=== PATIENT | female | born 1950 | race Caucasian/White ===

== ENCOUNTER → 2016-09-02 | Outpatient (CLI) | payer BC, OTHER | LOC: WI 11:37 | PROVIDERS: ATTEND Internal Medicine | DX: Z12.31 Encounter for screening mammogram for malignant neoplasm of breast (principal) | CPT/HCPCS: 77067; G0202 ==

== ENCOUNTER → 2016-09-04 | Outpatient (CLI) | payer BC, OTHER ==
--- NOTE | 2016-09-04 18:07 | XCELERA REPORT ---
[address] [address] Lower Extremity Arterial Evaluation Name: HUANG WATSON Age: 65 yrs Gender: Female : 1950 Patient Status: Outpatient Patient Location: Study Date: 09/04/2016 02:43 PM Procedure: A color flow and duplex scan of the lower extremity arteries was performed bilaterally with velocity and waveform anaylsis. Ankle brachial indicies performed. Reason For Study: PVD Ordering Physician: SCOUT LAI Performed By: Michaelle Rose Measurements and Calculations Right Left PHYS THERAPIST PSV 113.1 95.5 cm/sec Prox PFA PSV -89.4 -64.3 cm/sec Prox SFA PSV 96.3 93.8 cm/sec Mid SFA PSV -111.4 -95.8 cm/sec Dist SFA PSV -129.9 -102.6 cm/sec Prox Pop A PSV -63.5 -50.0 cm/sec Dist HANNAH PSV 75.8 82.9 cm/sec Dist TUNNELLER PSV 60.7 84.3 cm/sec Russell Pedis PSV 57.8 55.4 cm/sec Right Side Arterial Evaluation Normal velocity and triphasic waveforms noted from the Common Femoral artery to the Anterior Tibial artery. Biphasic in the Posterior Tibial Dorsalis Pedis arteries . 0-19% stenosis at the Posterior tibial and Dorsalis Pedis arteries. Ankle Brachial index is 1.13. Left Side Arterial Evaluation Normal velocity and triphasic waveforms noted from the Common Femoral artery to the Posterior Tibial artery. Biphasic in the Anterior Tibial artery . 0-19% stenosis at the Anterior Tibial tibial artery . Ankle Brachial index is 0.94. Interpretation Summary Mild hemodynamically significant lesions in the bilateral lower extremities, on duplex imaging, at rest. : SCOUT LAI > Ian Pennington
== END ==
LOC: SP 14:08
PROVIDERS: ATTEND Nurse Practitioner Acute Care
DX: I73.9 Peripheral vascular disease, unspecified (principal)
CPT/HCPCS: 93925

== ENCOUNTER 2018-07-07 18:18 | Inpatient (IN) | payer MEDICARE, BC, OTHER ==
[2018-07-07 18:36] LABS: ABSOLUTE BASOPHILS # (AUTO) 0.1 10^3/uL (0.0-0.2); ABSOLUTE EOSINOPHILS # (AUTO) 0.1 10^3/uL (0.0-0.6); ABSOLUTE LYMPHOCYTES (AUTO) 1.2 10^3/uL (0.5-4.7); ABSOLUTE MONOCYTES (AUTO) 0.4 10^3/uL (0.1-1.4); ABSOLUTE NEUT (AUTO) 3.4 10^3/uL (1.7-8.2); EOSINOPHILS % (AUTO) 2.5 % (0-6); HEMATOCRIT 29.6 % (36.0-47.0); HEMOGLOBIN 10.1 g/dL (12.0-15.5); LYMPHOCYTES % (AUTO) 23.3 % (13-45); MEAN CORPUSCULAR HEMOGLOBIN 33.8 pg (27.0-33.4); MEAN CORPUSCULAR VOLUME 99 fl (80-97); MONOCYTES % (AUTO) 7.7 % (3-13); PLATELET COUNT 192 10^3/uL (150-450); RED BLOOD COUNT 2.98 10^6/uL (3.72-5.28); RED CELL DISTRIBUTION WIDTH 13.9 % (11.5-14.0); SEGMENTED NEUTROPHILS % (AUTO) 65.5 % (42-78); TOTAL CELLS COUNTED % (AUTO) 100 %; WHITE BLOOD COUNT 5.2 10^3/uL (4.0-10.5)
[2018-07-07 18:53] LABS: ALANINE AMINOTRANSFERASE 15 U/L (9-52); ALBUMIN 4.2 g/dL (3.5-5.0); ALKALINE PHOSPHATASE 96 U/L (38-126); ANION GAP 11 (5-19); ASPARTATE AMINO TRANSFERASE 19 U/L (14-36); BILIRUBIN,DIRECT 0.5 mg/dL (0.0-0.4); BILIRUBIN,TOTAL 0.5 mg/dL (0.2-1.3); BLOOD UREA NITROGEN 64 mg/dL (7-20); CALCIUM 7.9 mg/dL (8.4-10.2); CARBON DIOXIDE 16 mmol/L (22-30); CHLORIDE 115 mmol/L (98-107); GLUCOSE 117 mg/dL (75-110); SODIUM 142.4 mmol/L (137-145); TOTAL PROTEIN 6.7 g/dL (6.3-8.2)
[2018-07-07 19:04] LABS: POTASSIUM 6.2 mmol/L (3.6-5.0)
[2018-07-07] MEDS ORDERED: DEXTROSE 50%-WATER 25 GM/50 ML DISP.SYRIN IV ONE (19:22)
[2018-07-07] MEDS ORDERED: CALCIUM GLUCONATE 1000 MG/10 ML INJ IV ONE (19:22)
[2018-07-07] MEDS ORDERED: INSULIN REG, HUMAN 100 UNIT/ML 3 ML VIAL (PYX) IV ONE (19:22)
[2018-07-07] MEDS ORDERED: NORMAL SALINE 1000 ML 1,000 ML IV ONE (19:22)
--- NOTE | 2018-07-07 19:28 | ER Document Report ---
ED General - General Chief Complaint: Abnormal Lab Results Stated Complaint: ABNORMAL LABS Time Seen by Provider: 07/07/18 19:14 Notes: Patient is a 67-year-old female that comes to the emergency department for chief complaint of abnormal labs. She states she was called by her music therapy specialist Dr. Richardson and told to come the emergency department for a high potassium. She states she has not been feeling well for 2-3 weeks, she states that she will constantly get a spinning sensation when she stands which frequently has caused her to vomit, the nausea has made her eat much less. She denies headache, chest pain, difficulty breathing, abdominal pain, fever or chills. Past medical history includes chronic kidney disease, she has not been on dialysis. TRAVEL OUTSIDE OF THE [place] IN LAST 30 DAYS: No - Related Data Allergies/Adverse Reactions: diphenhydramine HCl [From Benadryl] Allergy (Unknown, Verified 07/07/18 18:29) prochlorperazine edisylate [From Compazine] Allergy (Unknown, Verified 07/07/18 18:29) prochlorperazine maleate [From Compazine] Allergy (Unknown, Verified 07/07/18 18:29) metoclopramide HCl [From Reglan] Allergy (Verified 07/07/18 18:29) Past Medical History - General Information source: Patient - Social History Smoking Status: Never Smoker Frequency of alcohol use: None Drug Abuse: None Lives with: Family Family History: Reviewed & Not Pertinent Patient has suicidal ideation: No Patient has homicidal ideation: No - Past Medical History Cardiac Medical History: Reports: Hx Congestive Heart Failure, Hx Heart Attack, Hx Hypercholesterolemia, Hx Hypertension Denies: Hx DVT, Hx Pulmonary Embolism Pulmonary Medical History: Denies: Hx Tuberculosis Neurological Medical History: Reports: Hx Cerebrovascular Accident Endocrine Medical History: Reports: Hx Diabetes Mellitus Type 2 Renal/ Medical History: Denies: Hx Peritoneal Dialysis Past Surgical History: Reports: Hx Abdominal Surgery, Hx Bowel Surgery, Hx Ch olecystectomy, Hx Hysterectomy - Immunizations Hx Diphtheria, Pertussis, Tetanus Vaccination: Yes Review of Systems - Review of Systems Constitutional: See HPI EENT: No symptoms reported Cardiovascular: No symptoms reported Respiratory: No symptoms reported Gastrointestinal: See HPI Genitourinary: No symptoms reported Female Genitourinary: No symptoms reported Musculoskeletal: No symptoms reported Skin: No symptoms reported Hematologic/Lymphatic: No symptoms reported Neurological/Psychological: See HPI Physical Exam - Vital signs Vitals: Pulse Ox 97 07/07/18 18:19 - Notes Notes: GENERAL: Alert, no distress HEAD: Normocephalic, atraumatic. EYES: Pupils equal, round, and reactive to light. Extraocular movements intact. ENT: Oral mucosa very dry, tongue midline. Oropharynx unremarkable. Airway patent. Nares patent, no nasal septal hematoma, TM's intact. NECK: Full range of motion. Supple. Trachea midline. LUNGS: Clear to auscultation bilaterally, no wheezes, rales, or rhonchi. No respiratory distress. HEART: Regular rate and rhythm. No murmur ABDOMEN: Soft, non-tender. Non-distended. Bowel sounds present in all 4 quadrants. GENITOURINARY: Deferred EXTREMITIES: Moves all 4 extremities spontaneously. No edema, normal radial and dorsalis pedis pulses bilaterally. No cyanosis. BACK: no cervical, thoracic, lumbar midline tenderness. No saddle anesthesia, normal distal neurovascular exam. NEUROLOGICAL: Alert and oriented x3. Normal speech. [cranial nerves II through XII grossly intact]. PSYCH: Normal affect, normal mood. SKIN: Warm, dry, normal turgor. No rashes or lesions noted. Course - Re-evaluation Re-evalutation: Patient is reportedly unstable on her feet reports getting up and getting nauseated causing vomiting. This is persisted for the past 2-3 weeks. Never had the same symptoms prior. Patient appears dry on evaluation. Neurological examination is not concerning otherwise. CBC shows normocytic anemia, nonspecific otherwise. Chemistry showing elevated potassium at 6.2, elevated creatinine at 5.56, BUN is elevated, bicarbonate is low, suspect this is partially dehydration related. Patient's baseline is 2-3. Giving IV fluids, potassium, calcium gluconate, dextrose. EKG showing sinus rhythm, slight peaked T waves but not significantly changed from prior. QTc unremarkable. Concern because of patient's reported symptoms. CT of the head was performed and unremarkable. Concern for possible cerebellar stroke. Discussed with patient, she is agreeable to MRI. I discussed the patient with Dr. Mojica. MRI showing partial cerebral and parietal lobe infarct, these are not new, I do suspect these happened at onset of symptoms. No obvious source. Will require admission for risk stratification for stroke and treatment of acute renal failure and hyperkalemia. Patient states agreement with plan. Discussed with Dr. Garcia, internal medicine, patient will be admitted to the [facility]. We do have nephrology physical education aide. - Vital Signs Vital signs: Temp Pulse Resp BP Pulse Ox 97.9 F 70 12 131/80 H 96 07/08/18 03:52 07/08/18 03:52 07/08/18 03:52 07/08/18 03:52 07/08/18 03:52 - Laboratory Result Diagrams: 07/07/18 17:51 07/08/18 00:15 Laboratory results interpreted by me: 07/07/18 07/07/18 17:51 17:51 RBC 2.98 L Hgb 10.1 L Hct 29.6 L MCV 99 H MCH 33.8 H Potassium 6.2 H* Chloride 115 H Carbon Dioxide 16 L BUN 64 H Creatinine 5.56 H Est GFR ( Amer) 9 L Est GFR (Non-Af Amer) 8 L Glucose 117 H Calcium 7.9 L Direct Bilirubin 0.5 H Critical Care Note - Critical Care Note Total time excluding time spent on procedures (mins): 35 - Acute renal failure, hyperkalemia, CVA Comments: Please allow 35 minutes of critical care time for evaluation and management of patient with acute renal failure, hyperkalemia, previously undiagnosed CVA. Treatments include insulin, calcium gluconate, dextrose, IV fluids. Multiple re-evaluations. Time spent interpreting previous records and discussing with family member and patient. Time spent in consultation and admission to the hospital. Discharge - Discharge Clinical Impression: Hyperkalemia, Gait instability Acute on chronic renal failure Qualifiers: Acute renal failure type: unspecified Chronic kidney disease stage: unspecified stage Qualified Code(s): N17.9 - Acute kidney failure, unspecified Vomiting Qualifiers: Vomiting type: unspecified Vomiting Intractability: non-intractable Nausea pre sence: with nausea Qualified Code(s): R11.2 - Nausea with vomiting, unspecified CVA (cerebral vascular accident) Qualifiers: CVA mechanism: unspecified Qualified Code(s): I63.9 - Cerebral infarction, unspecified Condition: Fair Disposition: ADMITTED INPATIENT Admitting Provider: Hospitalist Unit Admitted: [facility]
--- NOTE | 2018-07-07 21:43 | RADIOLOGY REPORT (SQ) ---
CT HEAD WITHOUT IV CONTRAST HISTORY: Nausea and vomiting. Vertigo. COMPARISON: None. TECHNIQUE: CT scan of the brain without IV contrast. This exam was performed according to our departmental dose-optimization program, which includes automated exposure control, adjustment of the mA and/or kV according to patient size and/or use of iterative reconstruction technique. FINDINGS: There is an area of encephalomalacia in the right parietal region. There is an old infarct in the right basal ganglia and right cerebellum. There are scattered areas of hypoattenuation within the periventricular white matter, which likely represent chronic microvascular ischemia. No evidence of acute infarction, intracranial hemorrhage, extra-axial fluid collection, or midline shift. No air-fluid levels are seen in the paranasal sinuses to suggest acute sinusitis. No depressed skull fracture. IMPRESSION: 1. No acute intracranial findings. 2. Chronic right-sided infarcts. 3. Chronic microvascular ischemic disease.
--- NOTE | 2018-07-07 22:11 | RADIOLOGY REPORT (SQ) ---
EXAM DESCRIPTION: XR CHEST 1 VIEW COMPLETED DATE/TME: 07/07/2018 21:32 CLINICAL HISTORY: 67 years, Female, eval recorder in chest, want an MRI COMPARISON: X-ray chest 08/27/2015 NUMBER OF VIEWS: TECHNIQUE: LIMITATIONS: None. FINDINGS: There is an implanted cardiac recorder, projecting just below the left hemidiaphragm. This is a new finding, as compared with the prior chest x-rays. No evidence of pulmonary infiltrate or pleural effusion. The heart and mediastinum are unremarkable. Pulmonary vascularity appears normal. IMPRESSION: An implanted cardiac recorder, projects just below the left hemidiaphragm. copyright 2010 [employer]- All Rights Reserved
--- NOTE | 2018-07-07 23:03 | RADIOLOGY REPORT (SQ) ---
EXAM DESCRIPTION: MR BRAIN WITHOUT IV CONTRAST COMPLETED DATE/TME: 07/07/2018 20:30 CLINICAL HISTORY: 67 years Female, ? cerebellar stroke COMPARISON: CT, 07/07/18, 08/27/15 TECHNIQUE/LIMITATION: Conventional noncontrast MRI. FINDINGS: Stable multi-infarct pattern includes moderate encephalomalacia of the right parietotemporal lobe, small encephalomalacia of the right inferior cerebellum, moderate encephalomalacia of the right basal ganglia. Mild white matter microangiopathy. No acute ischemia. No MRI evidence of hemorrhage. No mass, mass effect, or midline shift. Extra-axial structures appear unremarkable. IMPRESSION: No acute findings. Multi-infarct pattern.
[2018-07-07] MEDS ORDERED: ACETAMINOPHEN 325 MG TABLET PO PRN (23:30)
[2018-07-07] MEDS ORDERED: DEXTROSE 40% GEL 15 GM TUBE PO PRN ×2 (23:30)
[2018-07-07] MEDS ORDERED: DEXTROSE 50%-WATER 25 GM/50 ML DISP.SYRIN IV PRN ×2 (23:30)
[2018-07-07] MEDS ORDERED: DOCUSATE SODIUM 100 MG CAPSULE PO PRN (23:30)
[2018-07-07] MEDS ORDERED: GLUCAGON,HUMAN RECOMB 1 MG INJ IM PRN (23:30)
[2018-07-07] MEDS ORDERED: MAGNESIUM HYDROXIDE SUSP 30 ML UDCUP PO PRN (23:30)
[2018-07-07] MEDS ORDERED: DOXAZOSIN MESYLATE 2 MG TABLET PO SCH (23:45)
[2018-07-07] MEDS ORDERED: LACTULOSE SYRUP 20 GM/30 ML UDCUP PO ONE (23:59)
--- NOTE | 2018-07-08 00:25 | EKG REPORT ---
SEVERITY:- NORMAL ECG - SINUS RHYTHM : Confirmed by: Claudia Strong MD 08-Jul-2018 00:24:39
[2018-07-08 00:59] LABS: ANION GAP 11 (5-19); BLOOD UREA NITROGEN 61 mg/dL (7-20); CALCIUM 7.5 mg/dL (8.4-10.2); CARBON DIOXIDE 14 mmol/L (22-30); CHLORIDE 116 mmol/L (98-107); GLUCOSE 76 mg/dL (75-110); SODIUM 140.7 mmol/L (137-145)
[2018-07-08 01:04] LABS: POTASSIUM 6.6 mmol/L (3.6-5.0)
[2018-07-08] MEDS ORDERED: LACTULOSE SYRUP 20 GM/30 ML UDCUP PO ONE (02:45)
[2018-07-08 02:59] LABS: APPEARANCE,URINE CLEAR; BILIRUBIN,URINE NEGATIVE (NEGATIVE); COLOR,URINE STRAW; GLUCOSE, URINE 50 mg/dL (NEGATIVE); KETONES,URINE NEGATIVE (NEGATIVE); LEUKOCYTE ESTERASE,URINE NEGATIVE (NEGATIVE); NITRITE,URINE NEGATIVE (NEGATIVE); PROTEIN,URINE NEGATIVE (NEGATIVE); URINE SPECIFIC GRAVITY 1.006; UROBILINOGEN,URINE NEGATIVE mg/dL (<2.0)
[2018-07-08 05:31] LABS: ANION GAP 8 (5-19); BLOOD UREA NITROGEN 61 mg/dL (7-20); CALCIUM 7.7 mg/dL (8.4-10.2); CARBON DIOXIDE 15 mmol/L (22-30); CHLORIDE 120 mmol/L (98-107); GLUCOSE 88 mg/dL (75-110); SODIUM 142.9 mmol/L (137-145); TRIGLYCERIDES 73 mg/dL (<150)
[2018-07-08 05:41] LABS: DIRECT LDL 44 mg/dL (<100)
[2018-07-08 05:49] LABS: POTASSIUM 6.9 mmol/L (3.6-5.0)
--- NOTE | 2018-07-08 05:53 | PDOC H&P ---
History of Present Illness Admission Date/PCP: 07/07/18 23:35 Patient complains of: Abnormal labs History of Present Illness: HUANG WATSON is a 67 year old female with a history of stage IV chronic kidney disease, dyslipidemia, hypertension, CVA, type 2 diabetes and congestive heart failure. She is contacted by her manager of operations to follow-up with the emergency department for an elevated potassium found to be 6.6 without peak T waves. After repeat chemistry for verification she receives calcium gluconate, albuterol and insulin. Labs also reveal acute on chronic renal failure. The patient describes 2 weeks of word finding difficulty, blurred vision, severe dizziness and nausea with watching the trees of blow in the wind or change of position. This prompts a MRI brain revealing subacute cerebellar CVA. She denies chest pain or shortness of breath but admits recurrent episodes of palpitations. She is currently in normal sinus rhythm. And denies recent change in medication regiment. She verifies her CODE STATUS is DNR and does not want hemodialysis. Past Medical History Cardiac Medical History: Reports: Congestive Heart Failure, Myocardial Infarction, Hyperlipidema, Hypertension Denies: DVT, Pulmonary Embolism Pulmonary Medical History: Denies: Tuberculosis Endocrine Medical History: Reports: Diabetes Mellitus Type 2 Renal/ Medical History: Reports: Chronic Kidney Disease Malignancy Medical History: Reports: Other - Uterine cancer GI Medical History: Reports: None Musculoskeltal Medical History: Reports: None Skin Medical History: Reports: None Psychiatric Medical History: Reports: None Denies: Depression Hematology: Reports: None Infectious Medical History: Reports: None Past Surgical History Past Surgical History: Reports: Cholecystectomy, Hysterectomy Social History Information Source: Patient, [facility] Lives with: Family Smoking Status: Never Smoker Number of Years Smokin Frequency of Alcohol Use: None Hx Recreational Drug Use: No Drugs: None Hx Prescription Drug Abuse: No - Advance Directive Resuscitation Status: Do Not Resuscitate Family History Family History: CVA, Hypertension Parental Family History Reviewed: Yes Children Family History Reviewed: Yes Sibling(s) Family History Reviewed.: Yes Medication/Allergy Home Medications: Aspirin [Aspirin EC] 81 mg PO DAILY 08/27/15 Atorvastatin Calcium 80 mg PO DAILY 08/27/15 Clindamycin HCl 300 mg PO TID #21 capsule 08/27/15 Clopidogrel Bisulfate [Plavix 75 mg Tablet] 75 mg PO DAILY 08/27/15 Doxazosin Mesylate [Cardura 2 mg Tablet] 2 mg PO DAILY 08/27/15 Ferrous Sulfate [Ferosul] 325 mg PO TID 08/27/15 Furosemide [Lasix 20 mg Tablet] 20 mg PO DAILY 08/27/15 Hydralazine HCl [Apresoline 50 mg Tablet] 100 mg PO TID 08/27/15 Lisinopril [Prinivil 5 mg Tablet] 2.5 mg PO DAILY 08/27/15 Metoprolol Succinate 50 mg PO DAILY 08/27/15 Nitroglycerin [Nitrostat 0.4 mg (1/150 Gr) Tabs 25/Bottle] 1 tab SL Q5MP PRN 08/27/15 Brashear-3 Acid Ethyl Esters [Lovaza 1 gm Capsule] 2 gm PO BID 08/27/15 Pantoprazole Sodium 40 mg PO DAILY 08/27/15 Allergies/Adverse Reactions: diphenhydramine HCl [From Benadryl] Allergy (Unknown, Verified 07/07/18 18:29) prochlorperazine edisylate [From Compazine] Allergy (Unknown, Verified 07/07/18 18:29) prochlorperazine maleate [From Compazine] Allergy (Unknown, Verified 07/07/18 18:29) metoclopramide HCl [From Reglan] Allergy (Verified 07/07/18 18:29) Review of Systems Constitutional: PRESENT: anorexia, weakness. ABSENT: chills, fever(s), headache(s), weight gain, weight loss Eyes: PRESENT: visual disturbances - 2 weeks of blurred vision Ears: ABSENT: hearing changes Nose, Mouth, and Throat: PRESENT: vertigo Cardiovascular: PRESENT: palpitations. ABSENT: chest pain, dyspnea on exertion, edema, orthropnea Respiratory: ABSENT: cough, hemoptysis Gastrointestinal: ABSENT: abdominal pain, constipation, diarrhea, hematemesis, hematochezia, nausea, vomiting Genitourinary: ABSENT: dysuria, hematuria Musculoskeletal: ABSENT: joint swelling Integumentary: ABSENT: rash, wounds Neurological: PRESENT: abnormal gait, dizziness, vertigo, weakness. ABSENT: abnormal speech, confusion, focal weakness, syncope Psychiatric: ABSENT: anxiety, depression, homidical ideation, suicidal ideation Endocrine: ABSENT: cold intolerance, heat intolerance, polydipsia, polyuria Hematologic/Lymphatic: ABSENT: easy bleeding, easy bruising Physical Exam Vital Signs: Temp Pulse Resp BP Pulse Ox 97.9 F 70 12 131/80 H 96 07/08/18 03:52 07/08/18 04:00 07/08/18 04:00 07/08/18 04:00 07/08/18 04:00 Intake & Output 07/06/18 07/07/18 07/08/18 11:59 11:59 11:59 Intake Total 1000 Balance 1000 Weight 67.3 kg General appearance: PRESENT: cooperative, mild distress, well-nourished. ABSENT: disheveled Head exam: PRESENT: atraumatic, normocephalic Eye exam: PRESENT: conjunctiva pink, EOMI, nystagmus, PERRLA. ABSENT: scleral icterus Ear exam: PRESENT: normal external ear exam Mouth exam: PRESENT: dry mucosa Neck exam: ABSENT: carotid bruit, JVD, lymphadenopathy, thyromegaly Respiratory exam: PRESENT: clear to auscultation laura. ABSENT: rales, rhonchi, wheezes Cardiovascular exam: PRESENT: RRR. ABSENT: diastolic murmur, rubs, systolic murmur Pulses: PRESENT: normal dorsalis pedis pul Vascular exam: PRESENT: normal capillary refill GI/Abdominal exam: PRESENT: normal bowel sounds, soft. ABSENT: distended, guarding, mass, organolmegaly, rebound, tenderness Rectal exam: PRESENT: deferred Extremities exam: PRESENT: full ROM. ABSENT: calf tenderness, clubbing, pedal edema Musculoskeletal exam: PRESENT: full ROM. ABSENT: ambulatory, deformity, dislocation, tenderness Neurological exam: PRESENT: alert, awake, oriented to person, oriented to place, oriented to time, oriented to situation, CN II-XII grossly intact, aphasic. ABSENT: motor sensory deficit Results Laboratory Results: 07/07/18 17:51 07/07/18 07/07/18 07/07/18 17:51 17:51 23:08 WBC 5.2 RBC 2.98 L Hgb 10.1 L Hct 29.6 L MCV 99 H MCH 33.8 H MCHC 34.0 RDW 13.9 Plt Count 192 Seg Neutrophils % 65.5 Lymphocytes % 23.3 Monocytes % 7.7 Eosinophils % 2.5 Basophils % 1.0 Absolute Neutrophils 3.4 Absolute Lymphocytes 1.2 Absolute Monocytes 0.4 Absolute Eosinophils 0.1 Absolute Basophils 0.1 Sodium 142.4 Cancelled Potassium 6.2 H* Cancelled Chloride 115 H Cancelled Carbon Dioxide 16 L Cancelled Anion Gap 11 Cancelled BUN 64 H Cancelled Creatinine 5.56 H Cancelled Est GFR ( Amer) 9 L Cancelled Est GFR (Non-Af Amer) 8 L Cancelled Glucose 117 H Cancelled Calcium 7.9 L Cancelled Total Bilirubin 0.5 AST 19 ALT 15 Alkaline Phosphatase 96 Total Protein 6.7 Albumin 4.2 Urine Color Urine Appearance Urine pH Ur Specific [place] Urine Protein Urine Glucose (UA) Urine Ketones Urine Blood Urine Nitrite Ur Leukocyte Esterase Urine WBC (Auto) 07/08/18 07/08/18 00:15 02:13 WBC RBC Hgb Hct MCV MCH MCHC RDW Plt Count Seg Neutrophils % Lymphocytes % Monocytes % Eosinophils % Basophils % Absolute Neutrophils Absolute Lymphocytes Absolute Monocytes Absolute Eosinophils Absolute Basophils Sodium 140.7 Potassium 6.6 H* Chloride 116 H Carbon Dioxide 14 L Anion Gap 11 BUN 61 H Creatinine 5.23 H Est GFR ( Amer) 10 L Est GFR (Non-Af Amer) 8 L Glucose 76 Calcium 7.5 L Total Bilirubin AST ALT Alkaline Phosphatase Total Protein Albumin Urine Color STRAW Urine Appearance CLEAR Urine pH 6.0 Ur Specific [place] 1.006 Urine Protein NEGATIVE Urine Glucose (UA) 50 H Urine Ketones NEGATIVE Urine Blood NEGATIVE Urine Nitrite NEGATIVE Ur Leukocyte Esterase NEGATIVE Urine WBC (Auto) 6 Impressions: Head CT 07/07/18 20:30 IMPRESSION: 1. No acute intracranial findings. 2. Chronic right-sided infarcts. 3. Chronic microvascular ischemic disease. Head MRI 07/07/18 20:30 IMPRESSION: No acute findings. Multi-infarct pattern. Chest X-Ray 07/07/18 21:32 IMPRESSION: An implanted cardiac recorder, projects just below the left hemidiaphragm. copyright 2010 [employer]- All Rights Reserved Assessment & Plan - Diagnosis (1) Hyperkalemia Is this a current diagnosis for this admission?: Yes Plan: Likely secondary to chronic kidney disease, without peak T waves, Kayexalate and lactulose ordered follow-up chemistry and urinalysis. (2) CVA (cerebral vascular accident) Qualifiers: CVA mechanism: unspecified Qualified Code(s): I63.9 - Cerebral infarction, unspecified Is this a current diagnosis for this admission?: Yes Plan: Complicated by ataxia, visual disturbance and expressive aphasia, CVA care set with aspirin, Lipitor, follow-up lipid profile, carotid Doppler, echocardiogram and physical therapy. (3) Ataxia Is this a current diagnosis for this admission?: Yes Plan: Physical therapy (4) Aphasia Is this a current diagnosis for this admission?: Yes Plan: Noted by patient and family but not perceived by physician. Consider speach therapy (5) Acute on chronic renal failure Qualifiers: Acute renal failure type: unspecified Chronic kidney disease stage: unspecified stage Qualified Code(s): N17.9 - Acute kidney failure, unspecified; N18.9 - Chronic kidney disease, unspecified Is this a current diagnosis for this admission?: Yes Plan: Complicated by hyperkalemia. Patient declines hemodialysis. Consider nephrology consultation - Time Time Spent: 50 to 70 Minutes - Inpatient Certification Medical Necessity: Need Close Monitoring Due to Risk of Patient Decompensation
[2018-07-08] MEDS ORDERED: SODIUM POLYSTYRENE SULFONATE 15 GM/60 ML ONE ×2 (05:58→06:12)
[2018-07-08] MEDS ORDERED: SODIUM POLYSTYRENE SULFONATE 15 GM/60 ML PO ONE ×2 (06:00→08:16)
[2018-07-08] MEDS ORDERED: CALCIUM GLUCONATE 2,000 MG in DEXTROSE 5%-WATER 100 ML IV ONE (06:00)
[2018-07-08] MEDS ORDERED: CALCIUM GLUCONATE 1000 MG/10 ML INJ IV ONE (06:04)
[2018-07-08] MEDS: LANSOPRAZOLE 30 MG TAB.RAP.DR PO SCH (06:08)
[2018-07-08] MEDS: HEPARIN SOD (PORCINE) 5,000 UNIT/ML 1 ML SYRINGE SUBCUT SCH ×3 (06:08→21:49)
[2018-07-08] MEDS ORDERED: ALBUTEROL SULFATE 0.083% NEB 2.5 MG/3 ML AMPUL NEB ONE (06:45)
[2018-07-08] MEDS ORDERED: INSULIN REG, HUMAN 100 UNIT/ML 3 ML VIAL (PYX) IV ONE (08:15)
[2018-07-08] MEDS ORDERED: DEXTROSE 50%-WATER 25 GM/50 ML DISP.SYRIN IV ONE (08:15)
[2018-07-08] MEDS ORDERED: 1/2 NORMAL SALINE IV PRN ×2 (08:16)
[2018-07-08] MEDS ORDERED: SODIUM BICARBONATE IV PRN ×2 (08:16)
[2018-07-08] MEDS: INSULIN LISPRO 100 UNIT/ML 3 ML VIAL SUBCUT SCH ×3 (08:51→17:54)
[2018-07-08] MEDS: NORMAL SALINE 250 ML with FUROSEMIDE 250 MG IV PRN ×2 (09:25)
[2018-07-08] MEDS: 1/2 NORMAL SALINE 1,000 ML with SODIUM BICARBONATE 50 MEQ IV PRN ×4 (09:32→20:18)
[2018-07-08] MEDS: CLOPIDOGREL BISULFATE 75 MG TABLET PO SCH (11:25)
[2018-07-08] MEDS: FERROUS SULFATE 325 MG TABLET PO SCH ×3 (11:25→18:01)
[2018-07-08] MEDS: ATORVASTATIN CALCIUM 80 MG TABLET PO SCH (11:25)
[2018-07-08] MEDS: ASPIRIN 81 MG TABLET, ENT COATED PO SCH (11:25)
[2018-07-08] MEDS: METOPROLOL SUCCINATE 25 MG TAB.SR.24H PO SCH (11:28)
[2018-07-08] MEDS: HYDRALAZINE HCL 50 MG TABLET PO SCH ×3 (11:28→18:01)
--- NOTE | 2018-07-08 12:02 | RADIOLOGY REPORT (SQ) ---
EXAM DESCRIPTION: CAROTID DOPPLER COMPLETED DATE/TIME: 07/08/2018 11:14 am REASON FOR STUDY: cva COMPARISON: MRI brain 07/07/2018 CT brain 07/07/2018 CT cervical spine 08/27/2015 TECHNIQUE: Grayscale ultrasound, Doppler velocity and spectra, and color Doppler images acquired of the extra-cranial carotid and vertebral arteries. Images stored on PACS. LIMITATIONS: None. FINDINGS: RIGHT CAROTID CCA Velocities: Within normal limits. Right common carotid artery peak systolic velocity 1.2 m/sec ICA Velocities Peak systolic 1.1 m/s. End diastolic 0.48 m/s. Proximal ICA/CCA peak systolic ratio 1.4. Calcific plaque at the right carotid bifurcation shadows the origin of the right ICA. Immediately di stal to the carotid bifurcation plaque, velocities suggest 50 to 69% diameter right internal carotid artery narrowing. LEFT CAROTID CCA Velocities: Within normal limits. Left common carotid artery peak systolic velocity 0.92 m/sec. ICA Velocities Peak systolic 1.24 m/s. End diastolic 0.48 m/s. Proximal ICA/CCA peak systolic ratio 1.5. Calcific plaque at the left carotid bifurcation shadows the origin of the left ICA. Immediately dist al to the carotid bifurcation plaque, velocities suggest 50 to 69% diameter narrowing left internal c arotid artery. VERTEBRAL ARTERIES: Antegrade flow. Normal waveforms. SUBCLAVIAN ARTERIES: Not evaluated OTHER: No other significant finding. IMPRESSION: Bilateral calcific plaque at the carotid bifurcations with bilateral 50 to 69% diameter narrowing of the proximal internal carotid arteries Antegrade pulsatile vertebral artery flow COMMENT: Quality ID #[id number]: Velocity criteria are extrapolated from the diameter data as defined by t he Society of Radiologists in Ultrasound Consensus Conference. Radiology 2003: 229; 340-346. TECHNICAL DOCUMENTATION: JOB ID: [id number] [employer]- All Rights Reserved Reading location - IP/workstation name: [email or web address]
[2018-07-08 13:44] LABS: ANION GAP 12 (5-19); BLOOD UREA NITROGEN 55 mg/dL (7-20); CALCIUM 8.1 mg/dL (8.4-10.2); CARBON DIOXIDE 12 mmol/L (22-30); CHLORIDE 119 mmol/L (98-107); SODIUM 142.9 mmol/L (137-145)
[2018-07-08 13:58] LABS: GLUCOSE 63 mg/dL (75-110)
[2018-07-08 14:08] LABS: POTASSIUM 5.6 mmol/L (3.6-5.0)
--- NOTE | 2018-07-08 14:43 | PDOC PROGRESS REPORT ---
Subjective Progress Note for:: 07/08/18 Subjective:: No adverse events overnight. Rhythm is remained stable on the monitor. No chest pain or palpitations. Potassium actually trended up despite interventions earlier in the day. Reason For Visit: CVA Physical Exam Vital Signs: Temp Pulse Resp BP Pulse Ox 98.4 F 74 16 142/75 H 100 07/08/18 12:23 07/08/18 12:23 07/08/18 12:23 07/08/18 12:23 07/08/18 12:23 Intake & Output 07/07/18 07/08/18 07/09/18 06:59 06:59 06:59 Intake Total 1000 222 Balance 1000 222 Weight 67.3 kg General appearance: PRESENT: no acute distress, cooperative, disheveled Respiratory exam: PRESENT: clear to auscultation laura, symmetrical, unlabored. ABSENT: accessory muscle use, decreased breath sounds, prolonged expiratory phas, rales, rhonchi, tachypnea, wheezes Cardiovascular exam: PRESENT: RRR, +S1, +S2 Vascular exam: PRESENT: normal capillary refill GI/Abdominal exam: PRESENT: normal bowel sounds, soft. ABSENT: distended, guarding, rebound, tenderness Extremities exam: ABSENT: clubbing, pedal edema Musculoskeletal exam: PRESENT: normal inspection. ABSENT: deformity Neurological exam: PRESENT: alert, awake, oriented to person, oriented to place, oriented to time, oriented to situation Psychiatric exam: PRESENT: flat affect Skin exam: PRESENT: dry, warm Results Laboratory Results: 07/07/18 17:51 07/08/18 12:46 07/07/18 07/07/18 07/07/18 17:51 17:51 23:08 WBC 5.2 RBC 2.98 L Hgb 10.1 L Hct 29.6 L MCV 99 H MCH 33.8 H MCHC 34.0 RDW 13.9 Plt Count 192 Seg Neutrophils % 65.5 Lymphocytes % 23.3 Monocytes % 7.7 Eosinophils % 2.5 Basophils % 1.0 Absolute Neutrophils 3.4 Absolute Lymphocytes 1.2 Absolute Monocytes 0.4 Absolute Eosinophils 0.1 Absolute Basophils 0.1 Sodium 142.4 Cancelled Potassium 6.2 H* Cancelled Chloride 115 H Cancelled Carbon Dioxide 16 L Cancelled Anion Gap 11 Cancelled BUN 64 H Cancelled Creatinine 5.56 H Cancelled Est GFR ( Amer) 9 L Cancelled Est GFR (Non-Af Amer) 8 L Cancelled Glucose 117 H Cancelled Calcium 7.9 L Cancelled Total Bilirubin 0.5 AST 19 ALT 15 Alkaline Phosphatase 96 Total Protein 6.7 Albumin 4.2 Triglycerides Cholesterol LDL Cholesterol Direct VLDL Cholesterol HDL Cholesterol Urine Color Urine Appearance Urine pH Ur Specific Levels Urine Protein Urine Glucose (UA) Urine Ketones Urine Blood Urine Nitrite Ur Leukocyte Esterase Urine WBC (Auto) 07/08/18 07/08/18 07/08/18 00:15 02:13 04:52 WBC RBC Hgb Hct MCV MCH MCHC RDW Plt Count Seg Neutrophils % Lymphocytes % Monocytes % Eosinophils % Basophils % Absolute Neutrophils Absolute Lymphocytes Absolute Monocytes Absolute Eosinophils Absolute Basophils Sodium 140.7 142.9 Potassium 6.6 H* 6.9 H* Chloride 116 H 120 H Carbon Dioxide 14 L 15 L Anion Gap 11 8 BUN 61 H 61 H Creatinine 5.23 H 5.38 H Est GFR ( Amer) 10 L 10 L Est GFR (Non-Af Amer) 8 L 8 L Glucose 76 88 Calcium 7.5 L 7.7 L Total Bilirubin AST ALT Alkaline Phosphatase Total Protein Albumin Triglycerides 73 Cholesterol 92.50 LDL Cholesterol Direct 44 VLDL Cholesterol 15.0 HDL Cholesterol 32 L Urine Color STRAW Urine Appearance CLEAR Urine pH 6.0 Ur Specific Levels 1.006 Urine Protein NEGATIVE Urine Glucose (UA) 50 H Urine Ketones NEGATIVE Urine Blood NEGATIVE Urine Nitrite NEGATIVE Ur Leukocyte Esterase NEGATIVE Urine WBC (Auto) 6 07/08/18 12:46 WBC RBC Hgb Hct MCV MCH MCHC RDW Plt Count Seg Neutrophils % Lymphocytes % Monocytes % Eosinophils % Basophils % Absolute Neutrophils Absolute Lymphocytes Absolute Monocytes Absolute Eosinophils Absolute Basophils Sodium 142.9 Potassium 5.6 H D Chloride 119 H Carbon Dioxide 12 L Anion Gap 12 BUN 55 H Creatinine 5.44 H Est GFR ( Amer) 10 L Est GFR (Non-Af Amer) 8 L Glucose 63 L Calcium 8.1 L Total Bilirubin AST ALT Alkaline Phosphatase Total Protein Albumin Triglycerides Cholesterol LDL Cholesterol Direct VLDL Cholesterol HDL Cholesterol Urine Color Urine Appearance Urine pH Ur Specific Levels Urine Protein Urine Glucose (UA) Urine Ketones Urine Blood Urine Nitrite Ur Leukocyte Esterase Urine WBC (Auto) Impressions: Head CT 07/07/18 20:30 IMPRESSION: 1. No acute intracranial findings. 2. Chronic right-sided infarcts. 3. Chronic microvascular ischemic disease. Head MRI 07/07/18 20:30 IMPRESSION: No acute findings. Multi-infarct pattern. Chest X-Ray 07/07/18 21:32 IMPRESSION: An implanted cardiac recorder, projects just below the left hemidiaphragm. copyright 2011 [employer]- All Rights Reserved Carotid Doppler Study 07/08/18 00:00 IMPRESSION: Bilateral calcific plaque at the carotid bifurcations with bilateral 50 to 69% diameter narrowing of the proximal internal carotid arteries Antegrade pulsatile vertebral artery flow Assessment & Plan - Diagnosis (1) Acute on chronic renal failure Qualifiers: Acute renal failure type: unspecified Chronic kidney disease stage: unspecified stage Qualified Code(s): N17.9 - Acute kidney failure, unspecified; N18.9 - Chronic kidney disease, unspecified Is this a current diagnosis for this admission?: Yes (2) CVA (cerebral vascular accident) Qualifiers: CVA mechanism: occlusion Precerebral and cerebral artery: unspecified cerebral artery Qualified Code(s): I63.50 - Cerebral infarction due to unspecified occlusion or stenosis of unspecified cerebral artery Is this a current diagnosis for this admission?: Yes Plan: Subacute stroke on MRI, suspected to have happened a couple weeks ago. She had bilateral carotid stenosis on Doppler. We will make sure she is on aspirin and a statin. Once her medical conditions little bit more stable, we will have her evaluated by PT, OT, and speech therapy. (3) Hyperkalemia Is this a current diagnosis for this admission?: Yes Plan: She got 1 dose of Kayexalate in the ER, and we do not have any more the pharmacy. We have had to give her a couple doses of insulin and glucose. We currently have her on an infusion with a combination of half normal saline and bicarbonate, plus a Lasix drip. This is gotten her potassium down to 5.6. We will continue to avoid administration of potassium containing products and will monitor her potassium in a serial fashion to ensure clearance. - Time Time Spent with patient: 25-34 minutes
[2018-07-08 15:28] LABS: ANION GAP 9 (5-19); BLOOD UREA NITROGEN 55 mg/dL (7-20); CALCIUM 7.3 mg/dL (8.4-10.2); CARBON DIOXIDE 14 mmol/L (22-30); CHLORIDE 118 mmol/L (98-107); GLUCOSE 123 mg/dL (75-110); POTASSIUM 5.3 mmol/L (3.6-5.0); SODIUM 141.2 mmol/L (137-145)
[2018-07-08 19:42] LABS: ANION GAP 10 (5-19); BLOOD UREA NITROGEN 54 mg/dL (7-20); CALCIUM 7.2 mg/dL (8.4-10.2); CARBON DIOXIDE 15 mmol/L (22-30); CHLORIDE 115 mmol/L (98-107); GLUCOSE 105 mg/dL (75-110); POTASSIUM 4.8 mmol/L (3.6-5.0); SODIUM 139.6 mmol/L (137-145)
[2018-07-09] MEDS ORDERED: PROMETHAZINE HCL 25 MG TABLET PO PRN (01:11)
[2018-07-09 05:16] LABS: ANION GAP 10 (5-19); BLOOD UREA NITROGEN 54 mg/dL (7-20); CARBON DIOXIDE 15 mmol/L (22-30); CHLORIDE 115 mmol/L (98-107); GLUCOSE 78 mg/dL (75-110); POTASSIUM 5.7 mmol/L (3.6-5.0)
[2018-07-09 05:27] LABS: CALCIUM 6.7 mg/dL (8.4-10.2)
[2018-07-09] MEDS: HEPARIN SOD (PORCINE) 5,000 UNIT/ML 1 ML SYRINGE SUBCUT SCH ×3 (06:07→21:23)
[2018-07-09] MEDS: LANSOPRAZOLE 30 MG TAB.RAP.DR PO SCH (06:07)
[2018-07-09] MEDS: INSULIN LISPRO 100 UNIT/ML 3 ML VIAL SUBCUT SCH ×3 (07:45→16:23)
[2018-07-09] MEDS ORDERED: CALCIUM GLUCONATE 1000 MG/10 ML INJ IV ONE (08:27)
[2018-07-09] MEDS: 1/2 NORMAL SALINE 1,000 ML with SODIUM BICARBONATE 50 MEQ IV PRN ×4 (08:33→21:23)
[2018-07-09] MEDS: HYDRALAZINE HCL 50 MG TABLET PO SCH ×3 (09:06→17:48)
[2018-07-09] MEDS: ATORVASTATIN CALCIUM 80 MG TABLET PO SCH (09:06)
[2018-07-09] MEDS: ASPIRIN 81 MG TABLET, ENT COATED PO SCH (09:06)
[2018-07-09] MEDS: FERROUS SULFATE 325 MG TABLET PO SCH ×3 (09:06→17:48)
[2018-07-09] MEDS: METOPROLOL SUCCINATE 25 MG TAB.SR.24H PO SCH (09:06)
[2018-07-09] MEDS: CLOPIDOGREL BISULFATE 75 MG TABLET PO SCH (09:06)
[2018-07-09] MEDS ORDERED: CALCIUM GLUCONATE 2,000 MG in DEXTROSE 5%-WATER 100 ML IV ONE (10:00)
--- NOTE | 2018-07-09 15:25 | PDOC PROGRESS REPORT ---
Subjective Progress Note for:: 07/09/18 Subjective:: No adverse events overnight. Potassium is trended down overnight. She apparently ate a bowl of fruit overnight, and it had some fruits and it that are sources of potassium such as strawberries. Potassium this morning was elevated. She has had no abnormalities on the heart monitor. No palpitations. No chest pain. She says after her stroke her main complaint has been a little bit of blurred vision. Reason For Visit: CVA Physical Exam Vital Signs: Temp Pulse Resp BP Pulse Ox 98.0 F 62 16 157/97 H 98 07/09/18 11:33 07/09/18 11:33 07/09/18 11:33 07/09/18 11:33 07/09/18 11:33 Intake & Output 07/08/18 07/09/18 07/10/18 06:59 06:59 06:59 Intake Total 1000 2715 120 Output Total 400 Balance 1000 2315 120 Weight 67.3 kg 65.4 kg General appearance: PRESENT: no acute distress, cooperative, disheveled Respiratory exam: PRESENT: clear to auscultation laura, symmetrical, unlabored. ABSENT: accessory muscle use, decreased breath sounds, prolonged expiratory phas, rales, rhonchi, tachypnea, wheezes Cardiovascular exam: PRESENT: RRR, +S1, +S2 Vascular exam: PRESENT: normal capillary refill GI/Abdominal exam: PRESENT: normal bowel sounds, soft. ABSENT: distended, guarding, rebound, tenderness Extremities exam: ABSENT: clubbing, pedal edema Musculoskeletal exam: PRESENT: normal inspection. ABSENT: deformity Neurological exam: PRESENT: alert, awake, oriented to person, oriented to place, oriented to time, oriented to situation Psychiatric exam: PRESENT: flat affect Skin exam: PRESENT: dry, warm Results Laboratory Results: 07/07/18 17:51 07/09/18 04:28 07/08/18 07/08/18 07/09/18 15:00 18:55 04:28 Sodium 141.2 139.6 140.0 Potassium 5.3 H 4.8 5.7 H Chloride 118 H 115 H 115 H Carbon Dioxide 14 L 15 L 15 L Anion Gap 9 10 10 BUN 55 H 54 H 54 H Creatinine 5.38 H 5.16 H 4.79 H Est GFR ( Amer) 10 L 10 L 11 L Est GFR (Non-Af Amer) 8 L 8 L 9 L Glucose 123 H 105 78 Calcium 7.3 L 7.2 L 6.7 L* Impressions: Head CT 07/07/18 20:30 IMPRESSION: 1. No acute intracranial findings. 2. Chronic right-sided infarcts. 3. Chronic microvascular ischemic disease. Head MRI 07/07/18 20:30 IMPRESSION: No acute findings. Multi-infarct pattern. Chest X-Ray 07/07/18 21:32 IMPRESSION: An implanted cardiac recorder, projects just below the left hemidiaphragm. copyright 2011 [email or web address]- All Rights Reserved Carotid Doppler Study 07/08/18 00:00 IMPRESSION: Bilateral calcific plaque at the carotid bifurcations with bilateral 50 to 69% diameter narrowing of the proximal internal carotid arteries Antegrade pulsatile vertebral artery flow Assessment & Plan - Diagnosis (1) Acute on chronic renal failure Qualifiers: Acute renal failure type: unspecified Chronic kidney disease stage: unspeci fied stage Qualified Code(s): N17.9 - Acute kidney failure, unspecified; N18.9 - Chronic kidney disease, unspecified Is this a current diagnosis for this admission?: Yes Plan: Improving with some fluids, and paradoxically with the diuresis. (2) CVA (cerebral vascular accident) Qualifiers: CVA mechanism: occlusion Precerebral and cerebral artery: unspecified cerebral artery Qualified Code(s): I63.50 - Cerebral infarction due to unspecified occlusion or stenosis of unspecified cerebral artery Is this a current diagnosis for this admission?: Yes Plan: Subacute stroke on MRI, suspected to have happened a couple weeks ago. She had bilateral carotid stenosis on Doppler. We will make sure she has vascular surgery follow-up for consultation as an outpatient. She also has a history of an abdominal aortic aneurysm that she says is between 6 and 7 cm, so I do not know how aggressive a vascular surgeon would want to be regarding surgery for her carotid stenosis. We will make sure she is on aspirin and a statin. Once her medical conditions little bit more stable, we will have her evaluated by PT, OT, and speech therapy. (3) Hyperkalemia Is this a current diagnosis for this admission?: Yes Plan: She got 1 dose of Kayexalate in the ER, and we do not have any more the pharmacy. We have had to give her a couple doses of insulin and glucose. We currently have her on an infusion with a combination of half normal saline and bicarbonate, plus a Lasix drip. This combination was doing fine until she got what is essentially an oral potassium bolus in the form of a bowl of fruit. We will continue with current therapy and make sure were not giving her anything by mouth that could increase her potassium levels, including inappropriate foods. - Time Time Spent with patient: 25-34 minutes
[2018-07-09 16:27] LABS: ANION GAP 13 (5-19); BLOOD UREA NITROGEN 51 mg/dL (7-20); CALCIUM 7.1 mg/dL (8.4-10.2); CARBON DIOXIDE 17 mmol/L (22-30); CHLORIDE 109 mmol/L (98-107); GLUCOSE 108 mg/dL (75-110); POTASSIUM 5.2 mmol/L (3.6-5.0); SODIUM 138.6 mmol/L (137-145)
[2018-07-09] MEDS: NORMAL SALINE 250 ML with FUROSEMIDE 250 MG IV PRN ×2 (20:33)
[2018-07-10] MEDS: LANSOPRAZOLE 30 MG TAB.RAP.DR PO SCH (05:29)
[2018-07-10] MEDS: HEPARIN SOD (PORCINE) 5,000 UNIT/ML 1 ML SYRINGE SUBCUT SCH ×3 (05:29→21:25)
[2018-07-10 05:33] LABS: ANION GAP 12 (5-19); BLOOD UREA NITROGEN 54 mg/dL (7-20); CARBON DIOXIDE 21 mmol/L (22-30); CHLORIDE 106 mmol/L (98-107); GLUCOSE 84 mg/dL (75-110); POTASSIUM 4.8 mmol/L (3.6-5.0); SODIUM 138.9 mmol/L (137-145)
[2018-07-10] MEDS: 1/2 NORMAL SALINE 1,000 ML with SODIUM BICARBONATE 50 MEQ IV PRN ×2 (05:34)
[2018-07-10 05:59] LABS: CALCIUM 6.5 mg/dL (8.4-10.2)
[2018-07-10] MEDS ORDERED: CALCIUM GLUCONATE 1,000 MG in DEXTROSE 5%-WATER 50 ML IV ONE (06:30)
[2018-07-10] MEDS ORDERED: CALCIUM GLUCONATE 1000 MG/10 ML INJ IV PRN (06:39)
[2018-07-10] MEDS: INSULIN LISPRO 100 UNIT/ML 3 ML VIAL SUBCUT SCH ×3 (09:01→17:29)
[2018-07-10] MEDS ORDERED: CALCIUM GLUCONATE 1000 MG/10 ML INJ IV ONE (09:30)
[2018-07-10] MEDS: HYDRALAZINE HCL 50 MG TABLET PO SCH ×3 (09:56→17:29)
[2018-07-10] MEDS: ATORVASTATIN CALCIUM 80 MG TABLET PO SCH (09:56)
[2018-07-10] MEDS: METOPROLOL SUCCINATE 25 MG TAB.SR.24H PO SCH (09:57)
[2018-07-10] MEDS: CLOPIDOGREL BISULFATE 75 MG TABLET PO SCH (09:57)
[2018-07-10] MEDS: FUROSEMIDE 20 MG TABLET PO SCH (09:57)
[2018-07-10] MEDS: ASPIRIN 81 MG TABLET, ENT COATED PO SCH (09:58)
[2018-07-10] MEDS: FERROUS SULFATE 325 MG TABLET PO SCH ×3 (09:58→17:30)
[2018-07-10] MEDS: NIFEDIPINE 30 MG TAB.ER.24 PO SCH (09:58)
--- NOTE | 2018-07-10 14:54 | PDOC PROGRESS REPORT ---
Subjective Progress Note for:: 07/10/18 Subjective:: No adverse events overnight. No palpitations or chest pain. No adverse events on telemetry. She feels a little weak but she did fairly well with physical therapy as long as she uses a walker. Her chief complaint is that her vision is changed since the stroke. Reason For Visit: CVA Physical Exam Vital Signs: Temp Pulse Resp BP Pulse Ox 98.4 F 67 19 179/81 H 96 07/10/18 11:33 07/10/18 11:33 07/10/18 11:33 07/10/18 11:33 07/10/18 11:33 Intake & Output 07/09/18 07/10/18 07/11/18 06:59 06:59 06:59 Intake Total 2715 2858 465 Output Total 400 Balance 2315 2858 465 Weight 65.4 kg 65.6 kg General appearance: PRESENT: no acute distress, cooperative, disheveled Respiratory exam: PRESENT: clear to auscultation laura, symmetrical, unlabored. ABSENT: accessory muscle use, decreased breath sounds, prolonged expiratory phas, rales, rhonchi, tachypnea, wheezes Cardiovascular exam: PRESENT: RRR, +S1, +S2 Vascular exam: PRESENT: normal capillary refill GI/Abdominal exam: PRESENT: normal bowel sounds, soft. ABSENT: distended, guarding, rebound, tenderness Extremities exam: ABSENT: clubbing, pedal edema Musculoskeletal exam: PRESENT: normal inspection. ABSENT: deformity Neurological exam: PRESENT: alert, awake, oriented to person, oriented to place, oriented to time, oriented to situation Psychiatric exam: PRESENT: flat affect Skin exam: PRESENT: dry, warm Results Laboratory Results: 07/07/18 17:51 07/10/18 04:27 07/09/18 07/10/18 15:35 04:27 Sodium 138.6 138.9 Potassium 5.2 H 4.8 Chloride 109 H 106 Carbon Dioxide 17 L 21 L Anion Gap 13 12 BUN 51 H 54 H Creatinine 4.60 H 4.33 H Est GFR ( Amer) 12 L 12 L Est GFR (Non-Af Amer) 10 L 10 L Glucose 108 84 Calcium 7.1 L 6.5 L* Impressions: Head CT 07/07/18 20:30 IMPRESSION: 1. No acute intracranial findings. 2. Chronic right-sided infarcts. 3. Chronic microvascular ischemic disease. Head MRI 07/07/18 20:30 IMPRESSION: No acute findings. Multi-infarct pattern. Chest X-Ray 07/07/18 21:32 IMPRESSION: An implanted cardiac recorder, projects just below the left hemidiaphragm. copyright 2010 [email or web address]- All Rights Reserved Carotid Doppler Study 07/08/18 00:00 IMPRESSION: Bilateral calcific plaque at the carotid bifurcations with bilateral 50 to 69% diameter narrowing of the proximal internal carotid arteries Antegrade pulsatile vertebral artery flow Assessment & Plan - Diagnosis (1) Acute on chronic renal failure Qualifiers: Acute renal failure type: unspecified Chronic kidney disease stage: unspecified stage Qualified Code(s): N17.9 - Acute kidney failure, unspecified; N18.9 - Chronic kidney disease, unspecified Is this a current diagnosis for this admission?: Yes Plan: Improving with some fluids, and paradoxically with the diuresis. Creatinine continues to trend down, not sure what the baseline is but it is definitely improved. (2) CVA (cerebral vascular accident) Qualifiers: CVA mechanism: occlusion Precerebral and cerebral artery: unspecified cerebral artery Qualified Code(s): I63.50 - Cerebral infarction due to unspecified occlusion or stenosis of unspecified cerebral artery Is this a current diagnosis for this admission?: Yes Plan: She is on aspirin and statin. She has not diabetic. She is not a smoker. We are trying to get her blood pressure little bit better control, put her on Procardia and stopped her lisinopril due to the fact that she came in with hyperkalemia. Physical therapy has recommended that she had a front wheel walker and home health physical therapy. (3) Hyperkalemia Is this a current diagnosis for this admission?: Yes Plan: Resolved. We have stopped her fluids and her Lasix drip. We will repeat a check on her potassium tomorrow to make sure it is not trending back up. (4) Hypocalcemia Is this a current diagnosis for this admission?: Yes Plan: Partially dilutional, partially due to the Lasix infusion that she had been on. We stopped the Lasix and the fluids and have replaced her calcium IV. We will repeat a check in the morning. - Time Time Spent with patient: 25-34 minutes
[2018-07-10] MEDS ORDERED: PHARMACY COMMUNICATION ORDER MC SCH (18:00)
[2018-07-10] MEDS ORDERED: ATORVASTATIN CALCIUM 80 MG TABLET PO SCH (22:00)
[2018-07-11] MEDS: HEPARIN SOD (PORCINE) 5,000 UNIT/ML 1 ML SYRINGE SUBCUT SCH ×2 (06:31→14:53)
[2018-07-11] MEDS: LANSOPRAZOLE 30 MG TAB.RAP.DR PO SCH (06:31)
[2018-07-11] MEDS: HYDRALAZINE HCL 50 MG TABLET PO SCH ×2 (09:52→14:53)
[2018-07-11] MEDS: FUROSEMIDE 20 MG TABLET PO SCH (09:52)
[2018-07-11] MEDS: FERROUS SULFATE 325 MG TABLET PO SCH ×2 (09:52→14:53)
[2018-07-11] MEDS: ASPIRIN 81 MG TABLET, ENT COATED PO SCH (09:52)
[2018-07-11] MEDS: NIFEDIPINE 30 MG TAB.ER.24 PO SCH (09:52)
[2018-07-11] MEDS: CLOPIDOGREL BISULFATE 75 MG TABLET PO SCH (09:52)
[2018-07-11] MEDS ORDERED: METOPROLOL SUCCINATE 50 MG TAB.SR.24H PO SCH (10:15)
[2018-07-11 10:30] LABS: ANION GAP 14 (5-19); BLOOD UREA NITROGEN 56 mg/dL (7-20); CALCIUM 7.1 mg/dL (8.4-10.2); CARBON DIOXIDE 21 mmol/L (22-30); CHLORIDE 104 mmol/L (98-107); GLUCOSE 122 mg/dL (75-110); POTASSIUM 4.8 mmol/L (3.6-5.0); SODIUM 139.4 mmol/L (137-145)
[2018-07-11] MEDS ORDERED: CALCIUM GLUCONATE 1000 MG/10 ML INJ IV ONE (14:08)
[2018-07-11 15:09] VITALS: BP 105/52
--- NOTE | 2018-07-11 15:37 | PDOC DISCHARGE SUMMARY ---
General - Admit/Disc Date/PCP Admission Date/Primary Care Provider: 07/07/18 23:35 Discharge Date: 07/11/18 - Discharge Diagnosis (1) Acute on chronic renal failure Is this a current diagnosis for this admission?: Yes Summary: Resolved with some IV fluids. Back to baseline. She has advanced chronic kidney disease, approximately stage IV, approaching stage V. (2) CVA (cerebral vascular accident) Is this a current diagnosis for this admission?: Yes Summary: This was not the main reason she came in, because she had symptoms starting 2 weeks ago. We worked her up and found that she did in fact have a subacute stroke. She is already on aspirin and a statin. She is already on Plavix as well. Mainly she has some visual disturbances. She was found to have bilateral carotid stenosis, and we recommended that she get a follow-up with a vascular surgeon for a consultation. We change 1 of her blood pressure medicines from lisinopril to Procardia because of the problem she was having with hyperkalemia. She was evaluated by physical therapy and they recommended a 2 wheel walker and home health physical therapy. (3) Hyperkalemia Is this a current diagnosis for this admission?: Yes Summary: This is originally why she came to the hospital. She was sent over because her senior behavioral scientist had been monitoring her potassium levels and they got elevated. She only got 2 doses of Kayexalate because that was all we had in the hospital, but she responded very well to a IV fluid infusion of half-normal saline plus bicarbonate, along with a Lasix drip. We had to replace her calcium a few times because of this. (4) Hypocalcemia Is this a current diagnosis for this admission?: Yes Summary: As noted above. We gave her another replacement dose of calcium before she left the hospital. - Additional Information Resuscitation Status: Do Not Resuscitate Discharge Diet: Cardiac Discharge Activity: Slowly Increase Activity, Supervised Activity Prescriptions: Nifedipine [Procardia XL 30 mg Tablet] 30 mg PO DAILY #30 tab.er.[id number] Home Medications: Aspirin [Aspirin EC] 81 mg PO DAILY 08/27/15 Atorvastatin Calcium 80 mg PO DAILY 08/27/15 Furosemide [Lasix 20 mg Tablet] 20 mg PO DAILY 08/27/15 Hydralazine HCl [Apresoline 50 mg Tablet] 100 mg PO TID 08/27/15 Metoprolol Succinate 50 mg PO DAILY 08/27/15 Nitroglycerin [Nitrostat 0.4 mg (1/150 Gr) Tabs 25/Bottle] 1 tab SL Q5MP PRN 08/27/15 [place]-3 Acid Ethyl Esters [Lovaza 1 gm Capsule] 2 gm PO BID 08/27/15 Pantoprazole Sodium 40 mg PO DAILY 08/27/15 Aspirin [Ecotrin] 81 mg PO DAILY 07/08/18 Promethazine HCl 12.5 mg PO Q8HP PRN 07/08/18 Sertraline HCl [Zoloft 50 mg Tablet] 50 mg PO DAILY 07/08/18 Nifedipine [Procardia XL 30 mg Tablet] 30 mg PO DAILY #30 tab.er.24 07/11/18 History of Present Illness History of Present Illness: HUANG WATSON is a 67 year old female with a history of stage IV chronic kidney disease, dyslipidemia, hypertension, CVA, type 2 diabetes and congestive heart failure. She is contacted by her senior behavioral scientist to follow-up with the emergency department for an elevated potassium found to be 6.6 without peak T waves. After repeat chemistry for verification she receives calcium gluconate, albuter ol and insulin. Labs also reveal acute on chronic renal failure. The patient describes 2 weeks of word finding difficulty, blurred vision, severe dizziness and nausea with watching the trees of blow in the wind or change of position. This prompts a MRI brain revealing subacute cerebellar CVA. She denies chest pain or shortness of breath but admits recurrent episodes of palpitations. She is currently in normal sinus rhythm. And denies recent change in medication regiment. She verifies her CODE STATUS is DNR and does not want hemodialysis. Hospital Course Hospital Course: We used the measures noted above to get her potassium down. At one point she ate a bowl of fruit and apparently had strawberries in it this made her potassium go up, but her potassium levels came on back down once we avoided potassium containing foods. Her stroke workup was as noted above. She will get a consultation with a vascular surgeon, and I do not know if she is going to need surgery, but she at least deserves a consultation. She will follow-up with her senior behavioral scientist to monitor her potassium and calcium levels. She is already on antiplatelet agents plus a statin. As previously noted, because of the hyperkalemia we took her off of the lisinopril and started Procardia instead. She will get home health physical therapy with a 2 wheeled walker. Her labs and examination were reassuring and she was discharged home in good condition. Physical Exam Vital Signs: Temp Pulse Resp BP Pulse Ox 98.2 F 72 18 105/52 L 97 07/11/18 15:07 07/11/18 15:07 07/11/18 15:07 07/11/18 15:07 07/11/18 15:07 Intake & Output 07/10/18 07/11/18 07/12/18 06:59 06:59 06:59 Intake Total 2858 1117 Balance 2858 1117 Weight 65.6 kg 63.9 kg General appearance: PRESENT: no acute distress, cooperative, disheveled Respiratory exam: PRESENT: clear to auscultation laura, symmetrical, unlabored. ABSENT: accessory muscle use, decreased breath sounds, prolonged expiratory phas, rales, rhonchi, tachypnea, wheezes Cardiovascular exam: PRESENT: RRR, +S1, +S2 Vascular exam: PRESENT: normal capillary refill GI/Abdominal exam: PRESENT: normal bowel sounds, soft. ABSENT: distended, guarding, rebound, tenderness Extremities exam: ABSENT: clubbing, pedal edema Musculoskeletal exam: PRESENT: normal inspection. ABSENT: deformity Neurological exam: PRESENT: alert, awake, oriented to person, oriented to place, oriented to time, oriented to situation Psychiatric exam: PRESENT: flat affect Skin exam: PRESENT: dry, warm Results Laboratory Results: 07/07/18 17:51 07/11/18 09:45 07/11/18 09:45 Sodium 139.4 Potassium 4.8 Chloride 104 Carbon Dioxide 21 L Anion Gap 14 BUN 56 H Creatinine 4.52 H Est GFR ( Amer) 12 L Est GFR (Non-Af Amer) 10 L Glucose 122 H Calcium 7.1 L Impressions: Head CT 07/07/18 20:30 IMPRESSION: 1. No acute intracranial findings. 2. Chronic right-sided infarcts. 3. Chronic microvascular ischemic disease. Head MRI 07/07/18 20:30 IMPRESSION: No acute findings. Multi-infarct pattern. Chest X-Ray 07/07/18 21:32 IMPRESSION: An implanted cardiac recorder, projects just below the left hemidiaphragm. copyright 2011 [employer]- All Rights Reserved Carotid Doppler Study 07/08/18 00:00 IMPRESSION: Bilateral calcific plaque at the carotid bifurcations with bilateral 50 to 69% diameter narrowing of the proximal internal carotid arteries Antegrade pulsatile vertebral artery flow Qualifiers - * PATIENT BEING DISCHARGED WITH ANY OF THE FOLLOWING DIAGNOSIS: Stroke Stroke Pt being discharged on Anti-thrombolytic therapy?: Yes Stroke Pt being discharged on Anti-coagulation therapy?: No Reason(s) for not prescribing Anti-coagulation therapy:: Not indicated Stroke Pt being discharged on Statins?: Yes
== END 2018-07-11 16:35 | disposition home health service (06) | DRG 683 ==
LOC: ER 18:18 → EH 23:35 → 3W 07-08 01:03
PROVIDERS: ADMIT Internal Medicine; ATTEND Internal Medicine
DX: N17.9 Acute kidney failure, unspecified (principal); I13.0 Hypertensive heart and chronic kidney disease with heart failure and stage 1 through stage 4 chronic kidney disease, or unspecified chronic kidney disease; E11.22 Type 2 diabetes mellitus with diabetic chronic kidney disease; N18.4 Chronic kidney disease, stage 4 (severe); I50.9 Heart failure, unspecified; Z66 Do not resuscitate; I65.23 Occlusion and stenosis of bilateral carotid arteries; E87.5 Hyperkalemia; I69.320 Aphasia following cerebral infarction; I69.398 Other sequelae of cerebral infarction; I69.393 Ataxia following cerebral infarction; H53.8 Other visual disturbances; E83.51 Hypocalcemia; E78.5 Hyperlipidemia, unspecified; Z79.02 Long term (current) use of antithrombotics/antiplatelets; Z79.82 Long term (current) use of aspirin; Z79.899 Other long term (current) drug therapy; I25.2 Old myocardial infarction; Z85.42 Personal history of malignant neoplasm of other parts of uterus; Z90.710 Acquired absence of both cervix and uterus; Z90.49 Acquired absence of other specified parts of digestive tract; Z88.8 Allergy status to other drugs, medicaments and biological substances
CPT/HCPCS: 36415; 70450; 70551; 71045; 80048; 80053; 80061; 81001; 82962; 83036; 85025; 93005; 93010; 93880; 94640; 96361; 96374; 96375; 99291; J0610; J1644; J1815; J1940; J3490; J7030; J7050

== ENCOUNTER 2018-07-30 14:13 | Emergency (ER) | payer MEDICARE, BC, OTHER ==
[2018-07-30 14:39] LABS: ABSOLUTE BASOPHILS # (AUTO) 0.1 10^3/uL (0.0-0.2); ABSOLUTE EOSINOPHILS # (AUTO) 0.3 10^3/uL (0.0-0.6); ABSOLUTE LYMPHOCYTES (AUTO) 1.2 10^3/uL (0.5-4.7); ABSOLUTE MONOCYTES (AUTO) 0.5 10^3/uL (0.1-1.4); ABSOLUTE NEUT (AUTO) 6.1 10^3/uL (1.7-8.2); BASOPHILS % (AUTO) 1.1 % (0-2); HEMATOCRIT 30.8 % (36.0-47.0); HEMOGLOBIN 10.7 g/dL (12.0-15.5); LYMPHOCYTES % (AUTO) 14.9 % (13-45); MEAN CORPUSCULAR HEMOGLOBIN 33.8 pg (27.0-33.4); MEAN CORPUSCULAR HGB CONC 34.7 g/dL (32.0-36.0); MEAN CORPUSCULAR VOLUME 98 fl (80-97); MONOCYTES % (AUTO) 5.6 % (3-13); PLATELET COUNT 330 10^3/uL (150-450); RED BLOOD COUNT 3.16 10^6/uL (3.72-5.28); SEGMENTED NEUTROPHILS % (AUTO) 74.4 % (42-78); TOTAL CELLS COUNTED % (AUTO) 100 %; WHITE BLOOD COUNT 8.2 10^3/uL (4.0-10.5)
[2018-07-30 15:01] LABS: ALANINE AMINOTRANSFERASE 16 U/L (9-52); ALKALINE PHOSPHATASE 120 U/L (38-126); ANION GAP 15 (5-19); ASPARTATE AMINO TRANSFERASE 28 U/L (14-36); BILIRUBIN,DIRECT 0.3 mg/dL (0.0-0.4); BILIRUBIN,TOTAL 0.5 mg/dL (0.2-1.3); BLOOD UREA NITROGEN 45 mg/dL (7-20); CALCIUM 8.9 mg/dL (8.4-10.2); CARBON DIOXIDE 19 mmol/L (22-30); CHLORIDE 108 mmol/L (98-107); GLUCOSE 101 mg/dL (75-110); POTASSIUM 4.5 mmol/L (3.6-5.0); SODIUM 141.9 mmol/L (137-145); TOTAL PROTEIN 8.5 g/dL (6.3-8.2)
--- NOTE | 2018-07-30 15:57 | RADIOLOGY REPORT (SQ) ---
EXAM DESCRIPTION: CHEST 2 VIEWS COMPLETED DATE/TIME: 07/30/2018 3:36 pm REASON FOR STUDY: chest pain COMPARISON: Chest films 07/07/2018, 08/27/2015 EXAM PARAMETERS: NUMBER OF VIEWS: two views TECHNIQUE: Digital Frontal and Lateral radiographic views of the chest acquired. RADIATION DOSE: NA LIMITATIONS: none FINDINGS: LUNGS AND PLEURA: No opacities, masses or pneumothorax. No pleural effusion. MEDIASTINUM AND HILAR STRUCTURES: No masses or contour abnormalities. HEART AND VASCULAR STRUCTURES: Heart normal size. No evidence for failure. BONES: No acute findings. HARDWARE: Clips right upper quadrant post cholecystectomy. Faintly radiopaque left coronary stent OTHER: No other significant finding. IMPRESSION: NO ACUTE RADIOGRAPHIC FINDING IN THE CHEST. TECHNICAL DOCUMENTATION: JOB ID: [id number] [employer]- All Rights Reserved Reading location - IP/workstation name: [email or web address]
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
[2018-07-30] MEDS ORDERED: MAG HYDROX/AL HYDROX/SIMETH SUSP 30 ML UDCUP PO ONE (16:04)
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
[2018-07-30 17:31] VITALS: BP 172/89
--- NOTE | 2018-07-30 20:50 | EKG REPORT ---
SEVERITY:- NORMAL ECG - SINUS RHYTHM : Confirmed by: Claudia Strong MD 30-Jul-2018 20:50:20
== END 2018-07-30 17:31 | disposition home or self-care (01) ==
LOC: ER 14:13
DX: S69.91XA Unspecified injury of right wrist, hand and finger(s), initial encounter (principal); S61.412A Laceration without foreign body of left hand, initial encounter; S29.9XXA Unspecified injury of thorax, initial encounter; R07.9 Chest pain, unspecified; M79.642 Pain in left hand; M25.531 Pain in right wrist; M25.571 Pain in right ankle and joints of right foot; F84.0 Autistic disorder; X58.XXXA Exposure to other specified factors, initial encounter; I50.9 Heart failure, unspecified; I11.0 Hypertensive heart disease with heart failure; E11.9 Type 2 diabetes mellitus without complications
CPT/HCPCS: 36415; 71046; 80053; 83690; 84484; 85025; 93005; 93010; 99284

== ENCOUNTER 2018-12-02 18:08 | Inpatient (IN) | payer MEDICARE, BC, OTHER ==
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
--- NOTE | 2018-12-02 19:46 | RADIOLOGY REPORT (SQ) ---
EXAM DESCRIPTION: CHEST 2 VIEWS COMPLETED DATE/TIME: 12/02/2018 7:26 pm REASON FOR STUDY: chest pain COMPARISON: None. EXAM PARAMETERS: NUMBER OF VIEWS: two views TECHNIQUE: Digital Frontal and Lateral radiographic views of the chest acquired. RADIATION DOSE: NA LIMITATIONS: none FINDINGS: LUNGS AND PLEURA: No opacities, masses or pneumothorax. No pleural effusion. MEDIASTINUM AND HILAR STRUCTURES: No masses or contour abnormalities. HEART AND VASCULAR STRUCTURES: Heart normal size. No evidence for failure. BONES: No acute findings. HARDWARE: None in the chest. OTHER: No other significant finding. IMPRESSION: NO ACUTE RADIOGRAPHIC FINDING IN THE CHEST. TECHNICAL DOCUMENTATION: JOB ID: [id number] [employer]- All Rights Reserved Reading location - IP/workstation name: [email or web address] [email or web address]
--- NOTE | 2018-12-02 20:01 | EKG REPORT ---
SEVERITY:- BORDERLINE ECG - SINUS RHYTHM BORDERLINE T ABNORMALITIES, ANT-LAT LEADS : Confirmed by: Claudia Strong MD 02-Dec-2018 20:00:48
[2018-12-02 20:21] LABS: APPEARANCE,URINE CLEAR; BILIRUBIN,URINE NEGATIVE (NEGATIVE); COLOR,URINE STRAW; GLUCOSE, URINE NEGATIVE (NEGATIVE); KETONES,URINE NEGATIVE (NEGATIVE); LEUKOCYTE ESTERASE,URINE TRACE (NEGATIVE); NITRITE,URINE NEGATIVE (NEGATIVE); PROTEIN,URINE 30 mg/dL (NEGATIVE); URINE SPECIFIC GRAVITY 1.006; UROBILINOGEN,URINE NEGATIVE mg/dL (<2.0)
[2018-12-02 20:41] LABS: ABSOLUTE BASOPHILS # (AUTO) 0.1 10^3/uL (0.0-0.2); ABSOLUTE EOSINOPHILS # (AUTO) 0.3 10^3/uL (0.0-0.6); ABSOLUTE LYMPHOCYTES (AUTO) 2.2 10^3/uL (0.5-4.7); ABSOLUTE MONOCYTES (AUTO) 0.7 10^3/uL (0.1-1.4); ABSOLUTE NEUT (AUTO) 5.4 10^3/uL (1.7-8.2); HEMATOCRIT 36.5 % (36.0-47.0); HEMOGLOBIN 11.7 g/dL (12.0-15.5); LYMPHOCYTES % (AUTO) 25.6 % (13-45); MEAN CORPUSCULAR HEMOGLOBIN 31.3 pg (27.0-33.4); MEAN CORPUSCULAR VOLUME 98 fl (80-97); MONOCYTES % (AUTO) 8.1 % (3-13); PLATELET COUNT 320 10^3/uL (150-450); RED BLOOD COUNT 3.72 10^6/uL (3.72-5.28); RED CELL DISTRIBUTION WIDTH 13.7 % (11.5-14.0); SEGMENTED NEUTROPHILS % (AUTO) 62.3 % (42-78); TOTAL CELLS COUNTED % (AUTO) 100 %; WHITE BLOOD COUNT 8.7 10^3/uL (4.0-10.5)
[2018-12-02 21:01] LABS: ALANINE AMINOTRANSFERASE 16 U/L (9-52); ALBUMIN 4.7 g/dL (3.5-5.0); ALKALINE PHOSPHATASE 101 U/L (38-126); ANION GAP 14 (5-19); ASPARTATE AMINO TRANSFERASE 21 U/L (14-36); BILIRUBIN,DIRECT 0.5 mg/dL (0.0-0.4); BILIRUBIN,TOTAL 0.5 mg/dL (0.2-1.3); BLOOD UREA NITROGEN 60 mg/dL (7-20); CALCIUM 9.5 mg/dL (8.4-10.2); CARBON DIOXIDE 17 mmol/L (22-30); CHLORIDE 108 mmol/L (98-107); CREATINE KINASE 47 U/L (30-135); GLUCOSE 115 mg/dL (75-110); LIPASE 566.9 U/L (23-300); POTASSIUM 5.9 mmol/L (3.6-5.0); SODIUM 138.8 mmol/L (137-145); TOTAL PROTEIN 7.9 g/dL (6.3-8.2)
[2018-12-02 21:11] LABS: CREATINE KINASE MB 0.83 ng/mL (<4.55)
[2018-12-02 21:19] LABS: TROPONIN I < 0.012 ng/mL
[2018-12-03] MEDS ORDERED: ALBUTEROL SULFATE 0.083% NEB 2.5 MG/3 ML AMPUL NEB ONE (00:07)
[2018-12-03] MEDS ORDERED: INSULIN REG, HUMAN 100 UNIT/ML 3 ML VIAL (PYX) IV ONE (00:08)
[2018-12-03] MEDS ORDERED: DEXTROSE 50%-WATER 25 GM/50 ML DISP.SYRIN IV ONE (00:08)
[2018-12-03] MEDS ORDERED: CALCIUM GLUCONATE 1000 MG/10 ML INJ IV ONE (00:08)
[2018-12-03] MEDS ORDERED: SODIUM POLYSTYRENE SULFONATE 15 GM/60 ML PO ONE (00:09)
--- NOTE | 2018-12-03 00:11 | ER Document Report ---
ED Cardiac - General Chief Complaint: Chest Pain Stated Complaint: POSSIBLE HEART ATTACK Time Seen by Provider: 12/02/18 19:14 Mode of Arrival: Wheelchair Information source: Patient TRAVEL OUTSIDE OF THE [place] IN LAST 30 DAYS: No - HPI Patient complains to provider of: Chest pain, Shortness of breath Was the onset of pain: Sudden Is the pain a: New problem Chest pain location: Substernal Quality of pain: Constant, Pressure Chest pain radiation location: Back Severity now: Moderate Severity at worst: Moderate Pain level currently: 2 Cardiac risk factors: Hypertension, Hx [place] Positive cardiac history: Yes Associated symptoms: Abdominal pain, Back pain, Shortness of breath Exacerbated by: Activity Relieved by: NTG Similar symptoms previously: Yes Recently seen / treated by doctor: No - Related Data Allergies/Adverse Reactions: diphenhydramine HCl [From Benadryl] Allergy (Unknown, Verified 12/02/18 18:28) prochlorperazine edisylate [From Compazine] Allergy (Unknown, Verified 12/02/18 18:28) prochlorperazine maleate [From Compazine] Allergy (Unknown, Verified 12/02/18 18:28) metoclopramide HCl [From Reglan] Allergy (Verified 12/02/18 18:28) Past Medical History - General Information source: Patient - Social History Smoking Status: Never Smoker Chew tobacco use (# tins/day): No Frequency of alcohol use: None Drug Abuse: None Family History: CVA, Hypertension Patient has suicidal ideation: No Patient has homicidal ideation: No - Past Medical History Cardiac Medical History: Reports: Hx Congestive Heart Failure, Hx Heart Attack, Hx Hypercholesterolemia, Hx Hypertension Denies: Hx DVT, Hx Pulmonary Embolism Pulmonary Medical History: Denies: Hx Tuberculosis Neurological Medical History: Reports: Hx Cerebrovascular Accident Endocrine Medical History: Reports: Hx Diabetes Mellitus Type 2 Renal/ Medical History: Denies: Hx Peritoneal Dialysis Psychiatric Medical History: Denies: Hx Depression Past Surgical History: Reports: Hx Abdominal Surgery, Hx Bowel Surgery, Hx Cholecystectomy, Hx Hysterectomy - Immunizations Hx Diphtheria, Pertussis, Tetanus Vaccination: Yes Hx Pneumococcal Vaccination: 02/22/18 Review of Systems - Review of Systems Constitutional: No symptoms reported EENT: No symptoms reported Cardiovascular: Chest pain Respiratory: Short of breath Gastrointestinal: Abdominal pain, Diarrhea, Nausea, Vomiting Genitourinary: No symptoms reported Female Genitourinary: No symptoms reported Musculoskeletal: No symptoms reported Skin: No symptoms reported Hematologic/Lymphatic: No symptoms reported Neurological/Psychological: Headaches -: Yes All other systems reviewed and negative Physical Exam - Vital signs Vitals: Temp Pulse Resp BP Pulse Ox 97.5 F 105 H 20 126/87 H 98 12/02/18 18:25 12/02/18 18:25 12/02/18 18:25 12/02/18 18:25 12/02/18 18:25 Interpretation: Normal - General General appearance: Appears well, Alert In distress: None - HEENT Head: Normocephalic, Atraumatic Eyes: Normal Pupils: PERRL - Respiratory Respiratory status: No respiratory distress Chest status: Nontender Breath sounds: Normal Chest palpation: Normal - Cardiovascular Rhythm: Regular Heart sounds: Normal auscultation Murmur: No - Abdominal Inspection: Normal Distension: No distension Bowel sounds: Normal Tenderness: Nontender Organomegaly: No organomegaly - Back Back: Normal, Nontender - Extremities General upper extremity: Normal inspection, Nontender, Normal color, Normal ROM, Normal temperature General lower extremity: Normal inspection, Nontender, Normal color, Normal ROM, Normal temperature, Normal weight bearing. No: Papito's sign - Neurological Neuro grossly intact: Yes Cognition: Normal Orientation: AAOx4 [place] Coma Scale Eye Opening: Spontaneous Anthony Coma Scale Verbal: Oriented Anthony Coma Scale Motor: Obeys Commands [place] Coma Scale Total: 15 Speech: Normal Motor strength normal: LUE, RUE, LLE, RLE Sensory: Normal - Psychological Associated symptoms: Normal affect, Normal mood - Skin Skin Temperature: Warm Skin Moisture: Dry Skin Color: Normal Course - Vital Signs Vital signs: Temp Pulse Resp BP Pulse Ox 98.7 F 105 H 14 153/78 H 97 12/03/18 01:55 12/02/18 18:25 12/03/18 01:50 12/03/18 01:50 12/03/18 01:50 - Laboratory Result Diagrams: 12/02/18 20:23 12/02/18 20:23 Laboratory results interpreted by me: 12/02/18 12/02/18 12/02/18 19:54 20:23 20:23 Hgb 11.7 L MCV 98 H Potassium 5.9 H Chloride 108 H Carbon Dioxide 17 L BUN 60 H Creatinine 5.99 H Est GFR ( Amer) 8 L Est GFR (Non-Af Amer) 7 L Glucose 115 H Direct Bilirubin 0.5 H Lipase 566.9 H Urine Protein 30 H Ur Leukocyte Esterase TRACE H - Diagnostic Test Radiology reviewed: Reports reviewed Radiology results interpreted by me: 12/03/18 00:39 Chest x-ray is unremarkable. - EKG Interpretation by Me EKG shows normal: Sinus rhythm Rate: Normal Rhythm: NSR When compared to previous EKG there are: Changes noted Additional EKG results interpreted by me: 12/03/18 00:40 T wave inversion V3 V4 V5. No STEMI. - Consults No standard instances Time consulted: 12:30 Reason for consultation: 12/03/18 00:42 Consulted the Vehicle Care Specialist on-call Dr. Yasmin Savage. She 1 the patient admitted by the hospitalist and she will see the patient first in the morning for evaluation for hemodialysis. Consulted provider: will see as inpatient - Transfer of Care Notes: 12/03/18 00:43 And will be admitted by the hospitalist Dr Serrano for further evaluation and management Critical Care Note - Critical Care Note Total time excluding time spent on procedures (mins): 45 Discharge - Discharge Clinical Impression: ESRD (end stage renal disease), Abnormal EKG, Metabolic acidosis Acute on chronic renal failure Qualifiers: Acute renal failure type: unspecified Chronic kidney disease stage: stage 5, not on chronic dialysis Qualified Code(s): N17.9 - Acute kidney failure, unspecified Chest pain Qualifiers: Chest pain type: unspecified Qualified Code(s): R07.9 - Chest pain, unspecified Condition: Serious Disposition: ADMITTED INPATIENT Admitting Provider: Maggie (Hospitalist) Unit Admitted: [facility]
[2018-12-03] MEDS ORDERED: NORMAL SALINE 1000 ML 1,000 ML IV ONE (00:24)
[2018-12-03] MEDS ORDERED: SODIUM BICARBONATE 8.4% INJ 50 MEQ/50 ML DISP.SYRIN IV ONE (01:15)
[2018-12-03] MEDS ORDERED: TEMAZEPAM 15 MG CAPSULE PO PRN (02:23)
[2018-12-03] MEDS ORDERED: MAG HYDROX/AL HYDROX/SIMETH SUSP 30 ML UDCUP PO PRN (02:23)
[2018-12-03] MEDS ORDERED: ONDANSETRON HCL INJ/PF 4 MG/2 ML SDV IV PRN (02:23)
[2018-12-03] MEDS ORDERED: ACETAMINOPHEN 325 MG TABLET PO PRN (02:32)
[2018-12-03] MEDS ORDERED: METOPROLOL TARTRATE PF/INJ 5 MG/5 ML SDV IV PRN (02:33)
[2018-12-03] MEDS ORDERED: MORPHINE SULFATE 10 MG/ML INJ IV PRN ×4 (02:33→02:40)
[2018-12-03 03:36] LABS: AMYLASE 121 U/L (30-110); CHOLESTEROL 122.94 mg/dL (0-200); TRIGLYCERIDES 87 mg/dL (<150)
[2018-12-03 03:47] LABS: DIRECT LDL 65 mg/dL (<100)
[2018-12-03 03:52] LABS: TROPONIN I < 0.012 ng/mL
[2018-12-03 03:53] LABS: FREE T3 3.35 pg/mL (2.77-5.27); FREE T4 (FREE THYROXINE) 1.16 ng/dL (0.78-2.19)
[2018-12-03 04:07] LABS: THYROID STIMULATING HORMONE 2.78 uIU/mL (0.47-4.68)
[2018-12-03] MEDS: HEPARIN SOD (PORCINE) 5,000 UNIT/ML 1 ML SYRINGE SUBCUT SCH ×2 (05:35→13:09)
[2018-12-03] MEDS ORDERED: PANTOPRAZOLE SODIUM 40 MG TABLET.DR PO SCH (06:00)
--- NOTE | 2018-12-03 06:16 | PDOC H&P ---
History of Present Illness Admission Date/PCP: 12/03/2018 00:32 JAMES JOHNSON MD Patient complains of: Chest pain History of Present Illness: HUANG WATSON is a 68 year old female who presented to the emergency room with a 1 day history of chest pain. She admits that she began having chest pain during a fit of anger on 12/01/2018 and continued to have chest pain since that time. The pain is been variable in severity but is generally worsened with activity and has been transiently relieved in part by the use of sublingual nitroglycerin. She indicates that the pain is present in her substernal chest and radiates into the epigastric area and into her back. She is describes the pain as a crushing pressure and it has been accompanied by dyspnea, nausea and vomiting. In the emergency room she was found to have a metabolic profile consistent with her history of stage V kidney failure (not on dialysis AGAINST MEDICAL ADVICE) her cardiac enzymes were negative and her EKG showed no evidence of acute cardiac injury or ischemia. The ER physician called Dr. Savage who asked that the patient be admitted so that she can evaluate her for possible dialysis. Patient indicates that she wishes to have a DO NOT RESUSCITATE status. She was subsequently admitted to the hospital for further evaluation and treatment. Past Medical History Cardiac Medical History: Reports: Congestive Heart Failure, Coronary Artery Disease, Myocardial Infarction, Hyperlipidema, Hypertension Denies: DVT, Pulmonary Embolism Pulmonary Medical History: Denies: Asthma, Chronic Obstructive Pulmonary Disease (COPD), Tuberculosis EENT Medical History: Denies: Cataracts, Ears - Hearing aids Neurological Medical History: Denies: Hemorrhagic CVA, Ischemic CVA, Seizures Endocrine Medical History: Reports: Diabetes Mellitus Type 2 Denies: Diabetes Mellitus Type 1, Hyperthyroidism, Hypothyroidism, Obesity Renal/ Medical History: Reports: Chronic Kidney Disease, End Stage Renal Disease Denies: Nephrolithiasis Malignancy Medical History: Reports: None GI Medical History: Denies: Cirrhosis, Hepatitis Musculoskeltal Medical History: Denies: Arthritis, Gout Skin Medical History: Denies: Eczema, Psoriasis Psychiatric Medical History: Denies: Alcohol Dependency, Substance Abuse, Tobacco Dependency Traumatic Medical History: Reports: None Hematology: Denies: Anemia, Bleeding Tendencies Infectious Medical History: Reports: None Past Surgical History Past Surgical History: Reports: Cholecystectomy, Hysterectomy Social History Information Source: Patient Lives with: Family Smoking Status: Never Smoker Frequency of Alcohol Use: None Hx Recreational Drug Use: No Drugs: None Hx Prescription Drug Abuse: No - Advance Directive Resuscitation Status: Do Not Resuscitate Surrogate healthcare decision maker:: Mariah Gamboa Family History Family History: CVA, Hypertension Parental Family History Reviewed: Yes Children Family History Reviewed: No Sibling(s) Family History Reviewed.: Yes Medication/Allergy Home Medications: Aspirin [Aspirin EC] 81 mg PO DAILY 08/27/15 Atorvastatin Calcium 80 mg PO DAILY 08/27/15 Furosemide [Lasix 20 mg Tablet] 20 mg PO DAILY 08/27/15 Hydralazine HCl [Apresoline 50 mg Tablet] 100 mg PO TID 08/27/15 Metoprolol Succinate 50 mg PO DAILY 08/27/15 Nitroglycerin [Nitrostat 0.4 mg (1/150 Gr) Tabs 25/Bottle] 1 tab SL Q5MP PRN 08/27/15 [place]-3 Acid Ethyl Esters [Lovaza 1 gm Capsule] 2 gm PO BID 08/27/15 Pantoprazole Sodium 40 mg PO DAILY 08/27/15 Aspirin [Ecotrin] 81 mg PO DAILY 07/08/18 Promethazine HCl 12.5 mg PO Q8HP PRN 07/08/18 Sertraline HCl [Zoloft 50 mg Tablet] 50 mg PO DAILY 07/08/18 Nifedipine [Procardia XL 30 mg Tablet] 30 mg PO DAILY #30 tab.er.24 07/11/18 Allergies/Adverse Reactions: diphenhydramine HCl [From Benadryl] Allergy (Unknown, Verified 12/02/18 18:28) prochlorperazine edisylate [From Compazine] Allergy (Unknown, Verified 12/02/18 18:28) prochlorperazine maleate [From Compazine] Allergy (Unknown, Verified 12/02/18 18:28) metoclopramide HCl [From Reglan] Allergy (Verified 12/02/18 18:28) Review of Systems Constitutional: ABSENT: chills, fever(s) Eyes: ABSENT: visual disturbances, other - Eye pain Ears: ABSENT: hearing changes, other - Ear pain Nose, Mouth, and Throat: ABSENT: mouth pain, sore throat Cardiovascular: PRESENT: as per HPI, chest pain, dyspnea on exertion. ABSENT: edema, orthropnea, palpitations Respiratory: PRESENT: as per HPI, dyspnea. ABSENT: cough Gastrointestinal: PRESENT: as per HPI, abdominal pain, nausea, vomiting. ABSENT: constipation, diarrhea Genitourinary: ABSENT: dysuria, hematuria Musculoskeletal: PRESENT: as per HPI, back pain. ABSENT: joint swelling, muscle weakness Integumentary: ABSENT: pruritus, rash Neurological: ABSENT: confusion, convulsions, focal weakness, memory loss, syncope Psychiatric: ABSENT: anxiety, depression Endocrine: ABSENT: cold intolerance, heat intolerance Hematologic/Lymphatic: ABSENT: easy bleeding, easy bruising Physical Exam Vital Signs: Temp Pulse Resp BP Pulse Ox 97.5 F 105 H 15 125/80 99 12/02/18 18:25 12/02/18 18:25 12/02/18 23:07 12/02/18 23:07 12/02/18 23:07 Intake & Output 12/01/18 12/02/18 12/03/18 23:59 23:59 23:59 Weight 56.7 kg General appearance: PRESENT: no acute distress, cooperative Head exam: PRESENT: atraumatic, normocephalic Eye exam: PRESENT: conjunctiva pink. ABSENT: conjunctival injection, scleral icterus Ear exam: PRESENT: normal external ear exam. ABSENT: bleeding, drainage Mouth exam: PRESENT: dry mucosa, neck supple Neck exam: PRESENT: JVD. ABSENT: thyromegaly, tracheal deviation Respiratory exam: PRESENT: clear to auscultation laura, symmetrical, unlabored Cardiovascular exam: PRESENT: RRR. ABSENT: clicks, gallop, rubs Pulses: PRESENT: normal radial pulses, normal dorsalis pedis pul Vascular exam: PRESENT: normal capillary refill. ABSENT: pallor GI/Abdominal exam: PRESENT: normal bowel sounds, soft Rectal exam: PRESENT: deferred Extremities exam: ABSENT: joint swelling, pedal edema Musculoskeletal exam: PRESENT: full ROM, normal inspection. ABSENT: tenderness Neurological exam: PRESENT: alert, oriented to person, oriented to place, oriented to time, oriented to situation, CN II-XII grossly intact. ABSENT: motor sensory deficit Psychiatric exam: PRESENT: appropriate affect, normal mood Skin exam: PRESENT: dry, intact, warm. ABSENT: jaundice, rash, urticaria Results Laboratory Results: 12/02/18 20:23 12/02/18 20:23 12/02/18 12/02/18 12/02/18 19:54 20:23 20:23 WBC 8.7 RBC 3.72 Hgb 11.7 L Hct 36.5 MCV 98 H MCH 31.3 MCHC 32.0 RDW 13.7 Plt Count 320 Seg Neutrophils % 62.3 Lymphocytes % 25.6 Monocytes % 8.1 Eosinophils % 3.0 Basophils % 1.0 Absolute Neutrophils 5.4 Absolute Lymphocytes 2.2 Absolute Monocytes 0.7 Absolute Eosinophils 0.3 Absolute Basophils 0.1 Sodium 138.8 Potassium 5.9 H Chloride 108 H Carbon Dioxide 17 L Anion Gap 14 BUN 60 H Creatinine 5.99 H Est GFR ( Amer) 8 L Est GFR (Non-Af Amer) 7 L Glucose 115 H Calcium 9.5 Total Bilirubin 0.5 AST 21 ALT 16 Alkaline Phosphatase 101 Total Protein 7.9 Albumin 4.7 Lipase 566.9 H Urine Color STRAW Urine Appearance CLEAR Urine pH 6.0 Ur Specific [place] 1.006 Urine Protein 30 H Urine Glucose (UA) NEGATIVE Urine Ketones NEGATIVE Urine Blood NEGATIVE Urine Nitrite NEGATIVE Ur Leukocyte Esterase TRACE H Urine WBC (Auto) 7 Urine RBC (Auto) 1 12/02/18 12/02/18 20:23 20:23 Creatine Kinase 47 CK-MB (CK-2) 0.83 Troponin I < 0.012 Impressions: Chest X-Ray 12/02/18 19:15 IMPRESSION: NO ACUTE RADIOGRAPHIC FINDING IN THE CHEST. Assessment and Plan - Diagnosis (1) Chest pain Qualifiers: Chest pain type: unspecified Qualified Code(s): R07.9 - Chest pain, unspecified Is this a current diagnosis for this admission?: Yes Plan: Serial cardiac enzymes will be obtained to evaluate for possible myocardial ischemia or injury. Patient will be treated with morphine sulfate 2 to 4 mg IV every 2 hours on a as needed basis for chest pain via sliding scale. To monitor closely on telemetry floor. Patient does wish to be DNR. (2) ESRD (end stage renal disease) Is this a current diagnosis for this admission?: Yes Plan: Patient will be seen by Dr. Savage in consultation for management of her end- stage renal disease. (3) Hyperkalemia Is this a current diagnosis for this admission?: Yes Plan: Patient has received a hyperkalemia protocol therapeutic intervention in the emergency room and her potassium will be followed on a regular basis for ongoing evaluation. (4) Serum lipase elevation Is this a current diagnosis for this admission?: Yes Plan: Patient serum amylase and lipase will be checked on a regular basis for further evaluation. - Time Time Spent with patient: 25-34 minutes Medications reviewed and adjusted accordingly: Yes Anticipated discharge: Home - Inpatient Certification Based on my medical assessment, after consideration of the patient's comorbidities, presenting symptoms, or acuity I expect that the services needed warrant INPATIENT care.: Yes I certify that my determination is in accordance with my understanding of Medicare's requirements for reasonable and necessary INPATIENT services [42 CFR 412.3e].: Yes Medical Necessity: Significant Comorbidiites Make Outpatient Treatment Too Risky, Need Close Monitoring Due to Risk of Patient Decompensation, Need For Continuous Telemetry Monitoring, Need for Pain Control, Risk of Complication if Not Cared For in Hospital
--- NOTE | 2018-12-03 06:19 | ADVANCED CARE ---
- Diagnosis (1) Chest pain Diagnosis Current: Yes (2) ESRD (end stage renal disease) Diagnosis Current: Yes (3) Hyperkalemia Diagnosis Current: Yes (4) Serum lipase elevation Diagnosis Current: Yes Attendance: The patient and myself. Resuscitation Status: Do Not Resuscitate Discussion: After brief discussion patient is determined that she wishes to be a DO NOT RESUSCITATE & DO NOT INTUBATE for her resuscitation CODE STATUS during this hospitalization. Additionally she has named Mariah Sparrow as her designated surrogate medical decision-maker. Care Planning Goals: 1. Patient will be DNR/DNI resuscitation CODE STATUS for this hospitalization. 2. Mariah Sparrow will be her designated surrogate medical decision-maker. Document(s) Completed: The following information will be included in the patient's permanent medical record as well as her current medical record and current orders via EMR entry: 1. Patient will be DNR/DNI resuscitation CODE STATUS for this hospitalization. 2. Mariah Sparrow is her designated surrogate medical decision-maker. Time Spent: 10 minutes
[2018-12-03 08:42] VITALS: BP 94/56
[2018-12-03 09:48] LABS: ANION GAP 9 (5-19); BLOOD UREA NITROGEN 57 mg/dL (7-20); CALCIUM 8.5 mg/dL (8.4-10.2); CARBON DIOXIDE 18 mmol/L (22-30); CHLORIDE 113 mmol/L (98-107); GLUCOSE 92 mg/dL (75-110); IRON(TIBC) 72.6 ug/dL (37-170); PHOSPHORUS 5.7 mg/dL (2.5-4.5); POTASSIUM 5.7 mmol/L (3.6-5.0); SODIUM 140.3 mmol/L (137-145)
[2018-12-03 09:52] LABS: ABSOLUTE RETICS # 0.048 10^6/uL (0.028-0.122); RETICULOCYTE COUNT (AUTO) 1.42 % (0.66-2.85)
[2018-12-03] MEDS ORDERED: DOCUSATE SODIUM 100 MG CAPSULE PO SCH (10:00)
--- NOTE | 2018-12-03 10:13 | PDOC CONSULTATION ---
Consultation Consult Date: 12/03/18 Provider Consulted: CARO PEACOCK Consult reason:: I was asked to see the patient for ESRD with hyperkalemia and possible need for dialysis. History of Present Illness Admission Date/PCP: 12/03/18 01:03 JAMES JOHNSON MD History of Present Illness: HUANG WATSON is a 68 year old female known to me with history of end-stage renal disease who has been refusing dialysis, hypertension, coronary artery disease, chronic left hydronephrosis and right atrophic kidney, and previous history of stroke who came in last night because of chest pains. Patient states that whenever she has this emotional episodes she gets pain all over including chest pains, stomach pains, flank pains and back pain. Apparently she has 1 of those episodes last night. Her cardiac enzymes were so far negative x2. She still has an headache. Patient states that she was here last June and had a stroke and since then her sense of taste, hearing insight has been off. She does not have an appetite and has not been eating well. She denies any leg swelling. She has had nausea and vomiting couple of nights ago and yesterday. She feels weak, tired and no energy. She admits shortness of breath and dyspnea on exertion and walking to her yard. She admits that her urine output is thick diminished. Initial evaluation showed a BUN of 60, creatinine of 5.99 with a EGFR of 7 previously with creatinine of 4.02 and EGFR of 11, also with potassium of 5.9 bicarbonate of 17. She is also anemic with hemoglobin of 11.7. For the last couple of years Dr. Richardson and myself have seen her in the office and have talked to her regarding dialysis and she has persistently and consistently r efused. She tells me that she had made peace with God did not know the consequences of not going to dialysis including all the symptoms that she is currently experiencing and . She states that her aunt and friends were on dialysis and did not have a good experience with. She went for dialysis education at [facility] couple of years back and she said every time she thinks about dialysis she goes into panic attacks. So at this time she is very certain that she does not want to go to dialysis at any time. She also decided to be a DNR. She was on hospice for couple months after her last hospitalization in June but she said she was released in September 11. She is aware of what hospice is. Past Medical History Cardiac Medical History: Reports: Atrial Fibrillation, Coronary Artery Disease, Hyperlipidemia, Hypertension-primary, Myocardial Infarction, Other - Infrarenal abdominal aortic aneurysm Neurological Medical History: Reports: Ischemic CVA Renal/ Medical History: Reports: End Stage Renal Disease, Hydronephrosis, Nephrolithiasis Malignancy Medical History: Reports: Other - Uterine cancer Hematology Medical History: Reports Anemia of Chronic Kidney Disease Past Surgical History Past Surgical History: Reports: Appendectomy, Cholecystectomy, Colectomy - Partial for polyps, Coronary Stent, Hysterectomy, Tonsillectomy, Other - PTCA Social History Information Source: Patient, [facility] Records Lives with: Family - Lives with handicapped son Smoking Status: Former Smoker Frequency of Alcohol Use: None Hx Recreational Drug Use: No Drugs: None Hx Prescription Drug Abuse: No - Advance Directive Resuscitation Status: Do Not Resuscitate Family History Family History: CAD - Parents, Chronic Kidney Disease - Father had ESRD and refused dialysis, CVA - Mother, DM - Mother, Hypertension - Parents Parental Family History Reviewed: Yes Children Family History Reviewed: Yes Sibling(s) Family History Reviewed.: Yes Medication/Allergy Allergies/Adverse Reactions: diphenhydramine HCl [From Benadryl] Allergy (Unknown, Verified 12/02/18 18:28) prochlorperazine edisylate [From Compazine] Allergy (Unknown, Verified 12/02/18 18:28) prochlorperazine maleate [From Compazine] Allergy (Unknown, Verified 12/02/18 18:28) metoclopramide HCl [From Reglan] Allergy (Verified 12/02/18 18:28) Review of Systems All systems: reviewed and no additional remarkable complaints except as stated Review of Systems: Constitutional: ABSENT: chills, fever(s), weight gain, weight loss; admits fatigue and headache Eyes: Present visual disturbances Ears: Present: hearing changes Cardiovascular: ABSENT: Edema, orthropnea, palpitations; admits chest pains and dyspnea on exertion Respiratory: ABSENT: cough, dyspnea, hemoptysis Gastrointestinal: ABSENT: Constipation, diarrhea, hematemesis, hematochezia; admits abdominal pain, nausea, and vomiting Genitourinary: ABSENT: dysuria, hematuria; admits decreased urine output Musculoskeletal: ABSENT: joint swelling Integumentary: ABSENT: rash, wounds Neurological: ABSENT: abnormal gait, abnormal speech, confusion, dizziness, focal weakness, numbness, syncope Psychiatric: ABSENT: anxiety, depression Endocrine: ABSENT: cold intolerance, heat intolerance, polydipsia, polyuria Hematologic/Lymphatic: ABSENT: easy bleeding, easy bruising, lymphadenopathy Physical Exam Vital Signs: Temp Pulse Resp BP Pulse Ox 98.3 F 80 16 94/56 L 100 12/03/18 08:00 12/03/18 08:00 12/03/18 08:00 12/03/18 08:00 12/03/18 08:00 Intake & Output 12/02/18 12/03/18 12/04/18 06:59 06:59 06:59 Intake Total 1000 Balance 1000 Weight 59.9 kg Exam: General appearance: No acute distress, cooperative, fairly-developed, fairly- nourished Head exam: PRESENT: atraumatic, normocephalic; positive uremic breath Eye exam: PRESENT: Conjunctiva pale, EOMI, PERRLA. ABSENT: conjunctival injection, scleral icterus Mouth exam: PRESENT: moist, neck supple, tongue midline Neck exam: PRESENT: full ROM. ABSENT: carotid bruit, JVD, lymphadenopathy, thyromegaly Respiratory exam: PRESENT: clear to auscultation bilaterally. ABSENT: rales, rhonchi, stridor, wheezes Cardiovascular exam: PRESENT: RRR, +S1, +S2. ABSENT: systolic murmur Pulses: PRESENT: normal radial pulses, normal dorsalis pedis pulses GI/Abdominal exam: PRESENT: normal bowel sounds, soft. ABSENT: guarding, mass, tenderness Rectal exam: Deferred Extremities exam: PRESENT: full ROM. ABSENT: calf tenderness, pedal edema Musculoskeletal: PRESENT: full ROM. ABSENT: deformity Neurological exam: PRESENT: alert, Awake, Oriented to person, Oriented to place, Oriented to time, reflexes normal, CN II-XII grossly intact. ABSENT: motor sensory deficit Psychiatric exam: PRESENT: appropriate affect, normal mood. ABSENT: homicidal ideation, suicidal ideation Skin exam: PRESENT: intact, dry, warm. Positive pallor ABSENT: rash Results Laboratory Results: 12/02/18 20:23 12/02/18 12/02/18 12/02/18 19:54 20:23 20:23 WBC 8.7 RBC 3.72 Hgb 11.7 L Hct 36.5 MCV 98 H MCH 31.3 MCHC 32.0 RDW 13.7 Plt Count 320 Seg Neutrophils % 62.3 Lymphocytes % 25.6 Monocytes % 8.1 Eosinophils % 3.0 Basophils % 1.0 Absolute Neutrophils 5.4 Absolute Lymphocytes 2.2 Absolute Monocytes 0.7 Absolute Eosinophils 0.3 Absolute Basophils 0.1 Sodium 138.8 Potassium 5.9 H Chloride 108 H Carbon Dioxide 17 L Anion Gap 14 BUN 60 H Creatinine 5.99 H Est GFR ( Amer) 8 L Est GFR (Non-Af Amer) 7 L Glucose 115 H Calcium 9.5 Total Bilirubin 0.5 AST 21 ALT 16 Alkaline Phosphatase 101 Total Protein 7.9 Albumin 4.7 Triglycerides Cholesterol LDL Cholesterol Direct VLDL Cholesterol HDL Cholesterol Amylase Lipase 566.9 H TSH Free T4 Free T3 pg/mL Urine Color STRAW Urine Appearance CLEAR Urine pH 6.0 Ur Specific [place] 1.006 Urine Protein 30 H Urine Glucose (UA) NEGATIVE Urine Ketones NEGATIVE Urine Blood NEGATIVE Urine Nitrite NEGATIVE Ur Leukocyte Esterase TRACE H Urine WBC (Auto) 7 Urine RBC (Auto) 1 12/03/18 12/03/18 03:08 03:08 WBC RBC Hgb Hct MCV MCH MCHC RDW Plt Count Seg Neutrophils % Lymphocytes % Monocytes % Eosinophils % Basophils % Absolute Neutrophils Absolute Lymphocytes Absolute Monocytes Absolute Eosinophils Absolute Basophils Sodium Potassium Chloride Carbon Dioxide Anion Gap BUN Creatinine Est GFR ( Amer) Est GFR (Non-Af Amer) Glucose Calcium Total Bilirubin AST ALT Alkaline Phosphatase Total Protein Albumin Triglycerides 87 Cholesterol 122.94 LDL Cholesterol Direct 65 VLDL Cholesterol 17.0 HDL Cholesterol 34 L Amylase 121 H Lipase 611.0 H TSH 2.78 Free T4 1.16 Free T3 pg/mL 3.35 Urine Color Urine Appearance Urine pH Ur Specific [place] Urine Protein Urine Glucose (UA) Urine Ketones Urine Blood Urine Nitrite Ur Leukocyte Esterase Urine WBC (Auto) Urine RBC (Auto) 12/02/18 12/02/18 12/03/18 20:23 20:23 03:08 Creatine Kinase 47 42 CK-MB (CK-2) 0.83 Troponin I < 0.012 12/03/18 03:08 Creatine Kinase CK-MB (CK-2) 0.90 Troponin I < 0.012 Impressions: Chest X-Ray 12/02/18 19:15 IMPRESSION: NO ACUTE RADIOGRAPHIC FINDING IN THE CHEST. Assessment & Plan - Diagnosis (1) Uremia of renal origin Is this a current diagnosis for this admission?: Yes Plan: Ideally with the patient's symptomatology of uremia she needs to be started on renal replacement therapy at this time. However the patient continues to refuse dialysis and knows the consequences including the symptoms that she is experiencing until . We will respect her wishes and refer her for hospice care. (2) ESRD (end stage renal disease) Is this a current diagnosis for this admission?: Yes Plan: This is secondary to hypertensive nephrosclerosis. Currently progressively worsening and currently uremic but refused hemodialysis. We will continue medical management. We will check phosphorus and PTH. (3) Hyperkalemia Is this a current diagnosis for this admission?: Yes Plan: Patient was giving anti-potassium regimen last night. Repeat labs today. (4) Metabolic acidosis Is this a current diagnosis for this admission?: Yes Plan: Start sodium bicarbonate. (5) Anemia in chronic kidney disease (CKD) Is this a current diagnosis for this admission?: Yes Plan: We will check iron panel. Does not need Procrit at this time yet. (6) Hypertension Is this a current diagnosis for this admission?: Yes Plan: Currently acceptable. (7) Chest pain Qualifiers: Chest pain type: unspecified Qualified Code(s): R07.9 - Chest pain, unspecified Is this a current diagnosis for this admission?: Yes Plan: Defer to hospitalist service. (8) Serum lipase elevation Is this a current diagnosis for this admission?: Yes Plan: Consider acute pancreatitis. Defer to hospitalist for management. - Notes Notes: Extensive discussion of recommendations discussed with patient. Also discussed the case with Dr. Carlson of the hospitalist service. Thank you very much for this consultation. - Time Time Spent: Greater than 70 Minutes
[2018-12-03 10:22] LABS: TROPONIN I 0.019 ng/mL
[2018-12-03] MEDS ORDERED: SODIUM BICARBONATE 650 MG TABLET PO SCH (11:00)
[2018-12-03 11:15] LABS: FOLATE 7.68 ng/mL (>2.76)
--- NOTE | 2018-12-03 12:11 | PDOC DISCHARGE SUMMARY ---
General - Admit/Disc Date/PCP Admission Date/Primary Care Provider: 12/03/18 01:03 JAMES JOHNSON MD Discharge Date: 12/03/18 - Discharge Diagnosis (1) ESRD (end stage renal disease) Is this a current diagnosis for this admission?: Yes Summary: Ms. Gita Watson a very pleasant 68-year-old female with long-standing history of renal disease. At this point in time she requires renal replacement therapy for which she is adamantly refusing. Patient wishes to return home with hospice. I have discussed this with nephrology and when he is in agreement with patient's plan of care. - Additional Information Resuscitation Status: Do Not Resuscitate Discharge Diet: As Tolerated Discharge Activity: Activity As Tolerated History of Present Illness Patient complains of: None History of Present Illness: HUANG WATSON is a 68 year old female Hospital Course Hospital Course: Ms. Gita Watson is a very pleasant 61-year-old female who presented to the ER last evening with chest pain hyperkalemia elevated lipase and end-stage renal disease. Patient has been on renal patient for several years has a family history of renal disease father and mother both of renal disease. Patient was exposed to hemodialysis as she took an aunt to dialysis and adamantly refuses to have the service performed. At this time we will send patient home with hospice for end-of-life care. Physical Exam Vital Signs: Temp Pulse Resp BP Pulse Ox 98.3 F 80 16 94/56 L 100 12/03/18 08:00 12/03/18 08:00 12/03/18 08:00 12/03/18 08:00 12/03/18 08:00 Intake & Output 12/02/18 12/03/18 12/04/18 06:59 06:59 06:59 Intake Total 1000 Balance 1000 Weight 59.9 kg General appearance: PRESENT: no acute distress, well-developed, well-nourished Neck exam: ABSENT: carotid bruit, JVD, lymphadenopathy, thyromegaly Respiratory exam: PRESENT: clear to auscultation laura. ABSENT: rales, rhonchi, wheezes Cardiovascular exam: PRESENT: RRR. ABSENT: diastolic murmur, rubs, systolic murmur Pulses: PRESENT: normal dorsalis pedis pul Vascular exam: PRESENT: normal capillary refill GI/Abdominal exam: PRESENT: normal bowel sounds, soft. ABSENT: distended, guarding, mass, organolmegaly, rebound, tenderness Extremities exam: PRESENT: full ROM. ABSENT: calf tenderness, clubbing, pedal edema Neurological exam: PRESENT: alert, awake, oriented to person, oriented to place, oriented to time, oriented to situation, CN II-XII grossly intact. ABSENT: motor sensory deficit Psychiatric exam: PRESENT: appropriate affect, normal mood. ABSENT: homicidal ideation, suicidal ideation Skin exam: PRESENT: dry, intact, warm. ABSENT: cyanosis, rash Results Laboratory Results: 12/02/18 20:23 12/03/18 09:00 12/02/18 12/02/18 12/02/18 19:54 20:23 20:23 WBC 8.7 RBC 3.72 Hgb 11.7 L Hct 36.5 MCV 98 H MCH 31.3 MCHC 32.0 RDW 13.7 Plt Count 320 Seg Neutrophils % 62.3 Lymphocytes % 25.6 Monocytes % 8.1 Eosinophils % 3.0 Basophils % 1.0 Absolute Neutrophils 5.4 Absolute Lymphocytes 2.2 Absolute Monocytes 0.7 Absolute Eosinophils 0.3 Absolute Basophils 0.1 Retic Count (auto) Absolute Retic Sodium 138.8 Potassium 5.9 H Chloride 108 H Carbon Dioxide 17 L Anion Gap 14 BUN 60 H Creatinine 5.99 H Est GFR ( Amer) 8 L Est GFR (Non-Af Amer) 7 L Glucose 115 H Calcium 9.5 Phosphorus Iron TIBC % Saturation Ferritin Total Bilirubin 0.5 AST 21 ALT 16 Alkaline Phosphatase 101 Total Protein 7.9 Albumin 4.7 Triglycerides Cholesterol LDL Cholesterol Direct VLDL Cholesterol HDL Cholesterol Amylase Lipase 566.9 H Vitamin B12 Folate TSH Free T4 Free T3 pg/mL PTH Intact Urine Color STRAW Urine Appearance CLEAR Urine pH 6.0 Ur Specific [place] 1.006 Urine Protein 30 H Urine Glucose (UA) NEGATIVE Urine Ketones NEGATIVE Urine Blood NEGATIVE Urine Nitrite NEGATIVE Ur Leukocyte Esterase TRACE H Urine WBC (Auto) 7 Urine RBC (Auto) 1 12/03/18 12/03/18 12/03/18 03:08 03:08 03:08 WBC RBC Hgb Hct MCV MCH MCHC RDW Plt Count Seg Neutrophils % Lymphocytes % Monocytes % Eosinophils % Basophils % Absolute Neutrophils Absolute Lymphocytes Absolute Monocytes Absolute Eosinophils Absolute Basophils Retic Count (auto) 1.42 Absolute Retic 0.048 Sodium Potassium Chloride Carbon Dioxide Anion Gap BUN Creatinine Est GFR ( Amer) Est GFR (Non-Af Amer) Glucose Calcium Phosphorus Iron TIBC % Saturation Ferritin Total Bilirubin AST ALT Alkaline Phosphatase Total Protein Albumin Triglycerides 87 Cholesterol 122.94 LDL Cholesterol Direct 65 VLDL Cholesterol 17.0 HDL Cholesterol 34 L Amylase 121 H Lipase 611.0 H Vitamin B12 Folate TSH 2.78 Free T4 1.16 Free T3 pg/mL 3.35 PTH Intact Urine Color Urine Appearance Urine pH Ur Specific [place] Urine Protein Urine Glucose (UA) Urine Ketones Urine Blood Urine Nitrite Ur Leukocyte Esterase Urine WBC (Auto) Urine RBC (Auto) 12/03/18 12/03/18 09:00 09:00 WBC RBC Hgb Hct MCV MCH MCHC RDW Plt Count Seg Neutrophils % Lymphocytes % Monocytes % Eosinophils % Basophils % Absolute Neutrophils Absolute Lymphocytes Absolute Monocytes Absolute Eosinophils Absolute Basophils Retic Count (auto) Absolute Retic Sodium 140.3 Potassium 5.7 H Chloride 113 H Carbon Dioxide 18 L Anion Gap 9 BUN 57 H Creatinine 5.37 H Est GFR ( Amer) 10 L Est GFR (Non-Af Amer) 8 L Glucose 92 Calcium 8.5 Phosphorus 5.7 H Iron 72.6 TIBC 217 L % Saturation 33 Ferritin 88.50 Total Bilirubin AST ALT Alkaline Phosphatase Total Protein Albumin Triglycerides Cholesterol LDL Cholesterol Direct VLDL Cholesterol HDL Cholesterol Amylase Lipase Vitamin B12 277.0 Folate 7.68 TSH Free T4 Free T3 pg/mL PTH Intact 394.0 H Urine Color Urine Appearance Urine pH Ur Specific [place] Urine Protein Urine Glucose (UA) Urine Ketones Urine Blood Urine Nitrite Ur Leukocyte Esterase Urine WBC (Auto) Urine RBC (Auto) 12/02/18 12/02/18 12/03/18 20:23 20:23 03:08 Creatine Kinase 47 42 CK-MB (CK-2) 0.83 Troponin I < 0.012 12/03/18 12/03/18 12/03/18 03:08 09:00 09:00 Creatine Kinase 39 CK-MB (CK-2) 0.90 1.00 Troponin I < 0.012 0.019 Impressions: Chest X-Ray 12/02/18 19:15 IMPRESSION: NO ACUTE RADIOGRAPHIC FINDING IN THE CHEST. Qualifiers - * PATIENT BEING DISCHARGED WITH ANY OF THE FOLLOWING DIAGNOSIS: No Acute Heart Failure - Is this a Heart Failure Patient?: No Plan Time Spent: Greater than 30 Minutes
--- NOTE | 2018-12-03 12:24 | ADVANCED CARE ---
- Diagnosis (1) ESRD (end stage renal disease) Diagnosis Current: Yes Attendance: Patient, myself and hospice case manager Resuscitation Status: Comfort Measures Only Discussion: Discussion with myself patient and hospice case manager. Patient adamantly refusing dialysis for end-stage renal disease. Patient understands the outcome for not having dialysis. Patient has all of her affairs in order and wishes to go home with hospice. medication coordinator setting up hospice for her at this time. Care Planning Goals: 1 comfort measures at home for end-of-life care 2 PRN Ativan for anxiety Time Spent: 15 minutes
--- NOTE | 2018-12-03 22:34 | EKG REPORT ---
SEVERITY:- BORDERLINE ECG - SINUS RHYTHM BORDERLINE T WAVE ABNORMALITIES : Confirmed by: Claudia Strong MD 03-Dec-2018 22:34:13
== END 2018-12-03 14:40 | disposition home or self-care (01) | DRG 683 ==
LOC: ER 18:08 → EH 12-03 01:03 → 3W 12-03 02:28
PROVIDERS: ADMIT Emergency Medicine; ATTEND Emergency Medicine
DX: N17.9 Acute kidney failure, unspecified (principal); I12.0 Hypertensive chronic kidney disease with stage 5 chronic kidney disease or end stage renal disease; E87.2 Acidosis; E87.5 Hyperkalemia; N18.6 End stage renal disease; N13.30 Unspecified hydronephrosis; F41.9 Anxiety disorder, unspecified; I25.10 Atherosclerotic heart disease of native coronary artery without angina pectoris; D63.1 Anemia in chronic kidney disease; E78.5 Hyperlipidemia, unspecified; I25.2 Old myocardial infarction; E11.22 Type 2 diabetes mellitus with diabetic chronic kidney disease; Z66 Do not resuscitate; Z99.2 Dependence on renal dialysis; Z91.15 Patient's noncompliance with renal dialysis; Z86.73 Personal history of transient ischemic attack (TIA), and cerebral infarction without residual deficits; Z85.42 Personal history of malignant neoplasm of other parts of uterus; Z95.5 Presence of coronary angioplasty implant and graft; Z90.49 Acquired absence of other specified parts of digestive tract; Z87.891 Personal history of nicotine dependence; Z88.8 Allergy status to other drugs, medicaments and biological substances; Z86.79 Personal history of other diseases of the circulatory system; Z84.1 Family history of disorders of kidney and ureter; Z79.82 Long term (current) use of aspirin; Z79.899 Other long term (current) drug therapy
CPT/HCPCS: 36415; 71046; 80048; 80053; 80061; 81001; 82150; 82306; 82550; 82553; 82607; 82728; 82746; 82962; 83036; 83540; 83550; 83690; 83970; 84100; 84439; 84443; 84481; 84484; 85025; 85045; 93005; 93010; J0610; J1644; J1815; J3490; J7030